=== PATIENT | female | born 1980 | race Caucasian/White ===

== ENCOUNTER → 2019-03-24 07:08 | Outpatient (CLI) | payer BC, SELFPAY ==
[2019-03-24 07:21] LABS: Mucous, Urine 0 SEEN /hpf (<or=2+)
[2019-03-24 10:41] LABS: Color, Urine Yellow (Yellow); Glucose, Dipstick Normal (Normal); Ketone-Dipstick Negative (Negative); Leukocyte Esterase-Dipstick 500 /ul (Negative); Nitrite-Dipstick Negative (Negative); Occult Blood-Urine 10 /ul (Negative); Protein-Dipstick Negative (Negative); Urine Bilirubin Dipstick Negative (Negative); Urine Clarity Sl. Cloudy (Clear); Urine Urobilinogen Normal (Normal)
[2019-03-24 10:44] LABS: Absolute Lymphocyte Count 2.77 X10^3/uL (0.83-4.51); Basophil# 0.09 X10^3/uL; Basophil% 0.8 % (0-1); Eosinophil# 0.36 X10^3/uL; Eosinophils% 3.2 % (0-5); Hematocrit 41.8 % (37-47); Hemoglobin 13.7 g/dL (12.0-15.0); Lymphocyte # 2.77 X10^3/ul (4.0); Lymphocyte % 24.8 % (19-41); Mean Corp Hgb Conc 32.8 g/dL (32-36); Mean Corpuscular Hgb 32.9 pg (27.0-32.0); Mean Corpuscular Volume 100.5 fL (81-99); Mean Platelet Vol. 9.8 fl (6.2-12.0); Monocyte# 0.86 X10^3/uL; Monocyte% 7.7 % (0-10); NRBC Flagged by Analyzer 0 % (0-5); Neutrophil # 7.03 X10^3/uL (2.7-7.7); Neutrophil % 63.1 % (47-70); Platelet Count 254 K/mm3 (150-450); RBC Distribution Width CV 13.3 % (11.6-14.6); RBC Distribution Width SD 49.6 fl (35.1-43.9); Red Blood Count 4.16 M/mm3 (4.2-5.4); White Blood Count 11.2 K/mm3 (4.4-11.0)
[2019-03-24 10:47] LABS: Bacteria 2+ /hpf (None Seen); Red Blood Cells-Urine 0-5 SEEN /hpf (0-5); Squamous Epithelial Cells - UA 0-5 SEEN /hpf (5-10); White Blood Cells 5-10 SEEN /hpf (0-5)
[2019-03-24 11:13] LABS: ALB/GLOB Ratio 0.9 RATIO (0.9-2.4); AST(SGOT) 20 U/L (15-37); Alanine Aminotransfer ALT/SGPT 24 U/L (13-56); Albumin, Serum 3.6 g/dL (3.2-5.0); Alkaline Phosphatase 67 U/L (45-117); Anion Gap 7 (5-15); BUN 12 mg/dL (7-18); BUN/Creat Ratio 13.1 RATIO (10-20); Calcium,Total 8.6 mg/dL (8.5-10.1); Chloride 108 mmol/L (98-107); Creatinine, Serum 0.91 mg/dL (0.55-1.02); EST Glomerular Filtration Rate 73 mL/min (>60); Est Glom Filt Rate - Afr Amer 88 mL/min (>60); Globulin 3.8 g/dL (2.2-4.2); Glucose 84 mg/dL (74-106); Potassium 4.2 mmol/L (3.5-5.1); Protein, Total 7.4 g/dL (6.4-8.2); Sodium Level 141 mmol/L (136-145); T4 Free Direct 0.97 ng/dL (0.76-1.46); Thyroid Stim Hormone (TSH) 1.19 uIU/mL (0.358-3.74)
== END ==
PROVIDERS: Family Provider Family Medicine; PCP Family Medicine; Referring Provider Family Medicine; Visit Provider Family Medicine
DX: N92.6 Irregular menstruation, unspecified (principal); E04.1 Nontoxic single thyroid nodule; Z72.0 Tobacco use
CPT/HCPCS: 36415; 80053; 81001; 84439; 84443; 85025

== ENCOUNTER → 2019-03-31 12:45 | Outpatient (CLI) | payer BC, SELFPAY ==
--- NOTE | 2019-03-31 12:48 | US_ITS ---
HISTORY: NODULE FELT ON EXAM COMPARISON: None TECHNIQUE: Grayscale and color Doppler sonography of the thyroid gland. FINDINGS: RIGHT LOBE: 5.5 x 2.0 x 2.6 cm LEFT LOBE: 5.4 x 2.0 x 2.3 cm ISTHMUS: 6 mm 6 x 3 x 7 mm lesion in the inferior right thyroid lobe which is isoechoic to thyroid with hypoechoic rim, regular margins, juventino-nodular vascularity and without definite calcification. TI-RADS 4. 4 x 4 x 2 mm hypoechoic nodule in the inferior right thyroid lobe with irregular margins, juventino-nodular vascularity and without definite calcification. TI-RADS 4. 3 x 2 x 3 mm left lobe cyst. Normal vascularity. US/Thyroid IMPRESSION: 1. Mild thyroid enlargement. 2. Subcentimeter right thyroid nodules. 3. Subcentimeter left thyroid lobe cyst. at 2246 Reported and signed by: Cassandra Nielson MD Electronically Signed: Cassandra Nielson MD at 22:46 EDT Tel , Service support ,
== END ==
PROVIDERS: Family Provider Family Medicine; PCP Family Medicine; Referring Provider Family Medicine; Visit Provider Family Medicine
DX: E04.1 Nontoxic single thyroid nodule (principal)
CPT/HCPCS: 76536

== ENCOUNTER → 2019-04-29 08:45 | Outpatient (CLI) | payer BC, SELFPAY ==
[2019-04-07 08:12] VITALS: BMI 25.2
[2019-04-29 10:21] LABS: Vitamin B12 680 pg/mL (211-911)
== END ==
PROVIDERS: Family Provider Family Medicine; PCP Family Medicine; Visit Provider Family Medicine
DX: D75.89 Other specified diseases of blood and blood-forming organs (principal)
CPT/HCPCS: 36415; 82607; 82746

== ENCOUNTER 2019-05-16 11:37 | Emergency (ER) | payer BC, SELFPAY ==
[2019-04-07 08:12] VITALS: BMI 25.2
[2019-05-16] VITALS (8 sets, daily range): BP systolic 102–140; BP diastolic 53–99; PULSE 72–105; RESP 14–23; TEMP 36.8; O2SAT 95–99; BMI 25.9
--- NOTE | 2019-05-16 11:46 | EKG12_ITS ---
Test Reason : MEDICAL CLEARANCE Blood Pressure : / mmHG Vent. Rate : 088 BPM Atrial Rate : 088 BPM P-R Int : 170 ms QRS Dur : 100 ms QT Int : 386 ms P-R-T Axes : 069 087 051 degrees QTc Int : 467 ms Normal sinus rhythm Incomplete right bundle branch block Borderline ECG Confirmed by MARISABEL MENDOZA, JEZ ([id number]), social media editor SILVER SHARPE ([id number]) on 05/22/2019 10:09:01 AM Referred By: BRENTON Confirmed By:JEZ PETIT MD
[2019-05-16 11:55] LABS: Absolute Lymphocyte Count 4.34 X10^3/uL (0.83-4.51); Absolute Neutrophil Count 6.2 X10^3/uL (2.0-7.7); Basophil# 0.16 X10^3/uL; Basophil% 1.3 % (0-1); Eosinophils% 2.5 % (0-5); Hematocrit 40.8 % (37-47); Hemoglobin 13.7 g/dL (12.0-15.0); Lymphocyte # 4.34 X10^3/ul (4.0); Lymphocyte % 36.2 % (19-41); Mean Corp Hgb Conc 33.6 g/dL (32-36); Mean Corpuscular Hgb 33.6 pg (27.0-32.0); Mean Platelet Vol. 8.9 fl (6.2-12.0); Monocyte# 0.86 X10^3/uL; Monocyte% 7.2 % (0-10); NRBC Flagged by Analyzer 0 % (0-5); Neutrophil # 6.23 X10^3/uL (2.7-7.7); Neutrophil % 51.9 % (47-70); POSITIVE MORPHOLOGY YES; Platelet Count 279 K/mm3 (150-450); RBC Distribution Width CV 12.7 % (11.6-14.6); RBC Distribution Width SD 46.6 fl (35.1-43.9); Red Blood Count 4.08 M/mm3 (4.2-5.4)
[2019-05-16 11:56] LABS: Differential Indicated SCAN CRITERIA MET
[2019-05-16 12:02] LABS: Internal QC Validated? YES +Cl - CLEAR BKGD; Pregnancy, Serum, hCG Quali. NEGATIVE Negative
[2019-05-16 12:11] LABS: ALB/GLOB Ratio 1.2 RATIO (0.9-2.4); AST(SGOT) 16 U/L (15-37); Alanine Aminotransfer ALT/SGPT 21 U/L (13-56); Alkaline Phosphatase 70 U/L (45-117); Anion Gap 9 (5-15); BUN 11 mg/dL (7-18); BUN/Creat Ratio 14.5 RATIO (10-20); Calcium,Total 8.1 mg/dL (8.5-10.1); Chloride 112 mmol/L (98-107); Creatinine, Serum 0.76 mg/dL (0.55-1.02); EST Glomerular Filtration Rate 90 mL/min (>60); Est Glom Filt Rate - Afr Amer 109 mL/min (>60); Estimated Creatinine Clearance 89.43 ml/min; Globulin 3.4 g/dL (2.2-4.2); Glucose 102 mg/dL (74-106); Potassium 3.8 mmol/L (3.5-5.1); Protein, Total 7.4 g/dL (6.4-8.2); Sodium Level 144 mmol/L (136-145)
[2019-05-16 12:18] LABS: Acetaminophen (Tylenol) Level < 2.0 ug/mL (10.0-30.0); Salicylate 4.3 mg/dL (2.8-20.0)
[2019-05-16 12:37] LABS: Amphetamine Urine VISTA NEGATIVE (<1000 ng/mL); Barbiturate Urine VISTA NEGATIVE (< 200 ng/mL); Benzodiazepine Urine VISTA NEGATIVE (< 200 ng/mL); Cocaine Urine VISTA NEGATIVE (< 300 ng/mL); Ecstacy Urine VISTA NEGATIVE (< 500 ng/mL); Methadone Urine VISTA NEGATIVE (< 300 ng/mL); PCP Urine VISTA NEGATIVE (< 25 ng/mL); THC Urine VISTA NEGATIVE (< 50 ng/mL); Vista UDS pH Range 5
--- NOTE | 2019-05-16 12:51 | ED.DCSUM_ITS ---
History of Present Illness Chief Complaint: Suicidal Informant: Patient, Family Onset: Today Context: Gradual Onset Timing: Continuous Current Severity: Moderate Maximum Severity: Severe Narrative: The patient presents to the emergency department with suicidal ideation. The patient has been under significant amount of stress lately. She does have a friend that had a cerebral aneurysm. She was more lethargic today. Her states that she had been drinking all night through the morning. She had been making threats of wanting to harm herself. She does take primidone for a tremor. He was unsure if she took more. She does admit to drinking vodka and red bull. Prior similar symptoms: No Recent Illness/Hospitalization: No Past Medical History - Allergies and Home Meds Allergies/Adverse Reactions: Allergies No Known Allergies Allergy (Unverified 05/16/19 11:48) Primary Care Physician: Sai Shaver MD [Primary Care Provider] - Prior records reviewed: Yes Past Medical History: - - Depression, essential tremor Smoking Status: Current every day smoker Review of Systems General: Denies: Chills, Fever, Sweats Eyes: Denies: Visual changes - bilaterally, Diplopia ENT: Denies: Rhinorrhea, Sore throat Cardiovascular: Denies: Chest pain, Palpitations Respiratory: Denies: Dyspnea, Cough, Dyspnea on exertion Gastrointestinal: Denies: Abdominal pain, Nausea, Vomiting, Diarrhea, Melena, Hematochezia Genitourinary: Denies: Dysuria, Hematuria, Frequency Musculoskeletal: Denies: Back pain, Extremity Pain Skin: Denies: Rash, Wounds Neurological: Denies: Headache, Weakness, Numbness Psych: Reports: Depression, Suicidal thoughts, Suicidal ideations Physical Exam Vital Signs/Narrative: Vital Signs Temp Pulse Resp BP Pulse Ox 05/16/19 11:38 98.3 F 105 H 16 140/99 H 99 Inital Vital Signs reviewed: Yes General: Well nourished, Well developed, No Acute Distress Head: Normocephalic, Atraumatic Eyes: Perrl, EOMI ENT: Moist mucous membranes, No rhinorrhea Neck: Supple, Nontender Cardiovascular: Regular rate, Regular rhythm, No murmurs Respiratory: No distress, CTA bilaterally, Chest nontender Abdomen: Soft, Nontender, Nondistended, Normal bowel sounds Back: Nontender, Normal Inspection Extremities: Nontender, No edema Skin: Normal color, No rash Neurological: Alert, Oriented x3, Cranial nerves II-XII grossly intact, Normal Strength, Normal Sensation Psychological: Depressed, Agitated Diagnostic/Tx/Re-eval Abnormal Lab Results 05/16/19 05/16/19 05/16/19 11:41 11:41 11:41 WBC 12.0 H RBC 4.08 L Hgb 13.7 Hct 40.8 MCV 100.0 H MCH 33.6 H MCHC 33.6 RDW Std Deviation 46.6 H RDW Coeff of [place] 12.7 Plt Count 279 MPV 8.9 Immature Gran % (Auto) 0.900 Neut % (Auto) 51.9 Lymph % (Auto) 36.2 Guthrie % (Auto) 7.2 Eos % (Auto) 2.5 Baso % (Auto) 1.3 H Absolute Neuts (auto) 6.2 Absolute Lymphs (auto) 4.34 Nucleated RBC % 0 Sodium 144 Potassium 3.8 Chloride 112 H Carbon Dioxide 23.0 Anion Gap 9 BUN 11 Creatinine 0.76 Estim Creat Clear Calc 89.43 Est GFR (MDRD) Af Amer 109 Est GFR (MDRD) Non-Af 90 BUN/Creatinine Ratio 14.5 Glucose 102 Calcium 8.1 L Total Bilirubin 0.20 AST 16 ALT 21 Alkaline Phosphatase 70 Total Protein 7.4 Albumin 4.0 Globulin 3.4 Albumin/Globulin Ratio 1.2 Serum , Qual Salicylates Urine Opiates Screen Urine Methadone Screen Acetaminophen Ur Barbiturates Screen Ur Phencyclidine Scrn Ur Amphetamines Screen U Methamphetamin-MDMA U Benzodiazepines Scrn Urine Cocaine Screen U Cannabinoids Screen Ur Drug Screen Comment Ethyl Alcohol 293.0 05/16/19 05/16/19 05/16/19 11:41 11:41 12:15 WBC RBC Hgb Hct MCV MCH MCHC RDW Std Deviation RDW Coeff of [place] Plt Count MPV Immature Gran % (Auto) Neut % (Auto) Lymph % (Auto) Guthrie % (Auto) Eos % (Auto) Baso % (Auto) Absolute Neuts (auto) Absolute Lymphs (auto) Nucleated RBC % Sodium Potassium Chloride Carbon Dioxide Anion Gap BUN Creatinine Estim Creat Clear Calc Est GFR (MDRD) Af Amer Est GFR (MDRD) Non-Af BUN/Creatinine Ratio Glucose Calcium Total Bilirubin AST ALT Alkaline Phosphatase Total Protein Albumin Globulin Albumin/Globulin Ratio Serum , Qual NEGATIVE Salicylates 4.3 Urine Opiates Screen NEGATIVE Urine Methadone Screen NEGATIVE Acetaminophen < 2.0 L Ur Barbiturates Screen NEGATIVE Ur Phencyclidine Scrn NEGATIVE Ur Amphetamines Screen NEGATIVE U Methamphetamin-MDMA NEGATIVE U Benzodiazepines Scrn NEGATIVE Urine Cocaine Screen NEGATIVE U Cannabinoids Screen NEGATIVE Ur Drug Screen Comment Ethyl Alcohol - Medical Decision Making The patient presents after suicidal gesture. She had reported suicidality. She is obviously intoxicated. Metabolic screening exam was performed. Her alcohol level was only 300, but otherwise she is medically cleared. At this point, the patient will be monitored until more sober and will be evaluated by crisis. Impression 1. Suicidal ideation 2. Alcohol intoxication ED Disposition - Plan for ED Patient: Referrals: Sai Shaver MD [Primary Care Provider] -
--- NOTE | 2019-05-16 13:00 | ED.RN ---
PT DENIES SUICIDAL OR HOMICIDAL IDEATIONS TO THIS RN. APPEARS INTOXICATED, RAMBLING NON-SENSICAL SPEECH, ANGRY AND CURSING THEN TEARFUL OR LAUGHING. SPOUSE AT BEDSIDE, VERY SUPPORTIVE.
--- NOTE | 2019-05-16 16:58 | ED.RN ---
HAD IT EXPLAINED TO HIM THAT PT HAS TO BE UNDER 100 ETOH BEFORE PT CAN BE TALKED TO. PT HAS TO SEE CRISIS OR SOCIAL WORK BEFORE A DECISION CAN BE MADE. PT GIVEN WATER BUT REFUSED FOOD. PT TOLD THAT SHE WOULD HAVE TO BE UNDER FOR ETOH WELL. PT TEARFUL AND STATED THAT HER POA WILL BE COMING
--- NOTE | 2019-05-16 17:12 | ED.RN ---
PT TEARFUL, STATES SHE DOES NOT WANT TO HAVE ANY ACCESS TO HER MEDICAL RECORDS OR VISIT HER AT THIS TIME. PT UPDATED THAT SHE WILL NEED TO STAY APPROX 9 MORE HOURS UNTIL ETOH LEVEL IS LOWER. PT VOICES UNDERSTANDING.
--- NOTE | 2019-05-16 17:17 | ED.RN ---
pt requesting no visitor at this time. informed and decided to go home. Rick has left his phone number for contact. [phone]. roxanne florez rn [phone]
[2019-05-17 00:30] VITALS: RESP 16
[2019-05-17 01:18] VITALS: RESP 16
--- NOTE | 2019-05-17 03:20 | ED.VISSUMM ---
- ER Visit Summary Date of Service: 05/17/19 Chief Complaint: [] History of Present Illness: The patient is a 38 F [] Physical Examination: [] Test Results: [] Emergency Department Course and Treatment: [] Treatment Plan: [] Disposition: [] Impression: [] This note was generated with [employer] dictation software. It may contain incorrect words, spelling, and punctuation that were not noted in review of the chart prior to signing ED Disposition - Plan for ED Patient: Disposition: Home or Assisted Living Diagnosis: Alcohol intoxication Instructions: Alcohol Intoxication, Depression Referrals: Sai Shaver MD [Primary Care Provider] - Additional Instructions: Avoid drinking alcohol. Return to emergency room if you have worsening depression or further concerns.
[2019-05-17 03:27] VITALS: BP 119/82; PULSE 79; RESP 16; O2SAT 100
--- NOTE | 2019-05-17 03:27 | ED.RN ---
PT BELONGINGS RETURNED TO PT. THIS NURSE REVIEWED D/C INSTRUCTIONS WITH PT AND . PT VERBALIZED UNDERSTANDING OF INSTRUCTIONS. IV D/C. IV CATHETER INTACT. PT TOLERATED WELL. PT DENIES FURTHER NEEDS OR QUESTIONS AT THIS TIME. PT AMBULATES FROM ROOM ON OWN WITHOUT ASSISTANCE FROM STAFF
== END 2019-05-17 03:28 | disposition home or self-care (01) ==
PROVIDERS: Emergency Medicine; Emergency Provider Emergency Medicine; Family Provider Family Medicine; PCP Family Medicine
DX: R45.851 Suicidal ideations (principal); F10.129 Alcohol abuse with intoxication, unspecified; F17.200 Nicotine dependence, unspecified, uncomplicated; F32.9 Major depressive disorder, single episode, unspecified; G25.0 Essential tremor; Y90.8 Blood alcohol level of 240 mg/100 ml or more
CPT/HCPCS: 80053; 80307; 80320; 80329; 84703; 85025; 93005; 99285; J7030; A4216; G0480

== ENCOUNTER → 2020-05-06 13:12 | Outpatient (CLI) | payer BC, SELFPAY ==
[2019-05-16 11:38] VITALS: BMI 25.9
[2020-05-06 15:08] LABS: Absolute Neutrophil Count 5.9 X10^3/uL (2.0-7.7); Basophil# 0.08 X10^3/uL; Basophil% 0.8 % (0-1); Eosinophil# 0.21 X10^3/uL; Eosinophils% 2.2 % (0-5); Hematocrit 39.3 % (37-47); Hemoglobin 12.6 g/dL (12.0-15.0); Lymphocyte % 28.7 % (19-41); Mean Corp Hgb Conc 32.1 g/dL (32-36); Mean Corpuscular Hgb 31.5 pg (27.0-32.0); Mean Corpuscular Volume 98.3 fL (81-99); Mean Platelet Vol. 9.6 fl (6.2-12.0); Monocyte# 0.75 X10^3/uL; Monocyte% 7.7 % (0-10); NRBC Flagged by Analyzer 0 % (0-5); Neutrophil # 5.86 X10^3/uL (2.7-7.7); Neutrophil % 60.2 % (47-70); Platelet Count 300 K/mm3 (150-450); RBC Distribution Width CV 12.5 % (11.6-14.6); RBC Distribution Width SD 45.1 fl (35.1-43.9); White Blood Count 9.7 K/mm3 (4.4-11.0)
[2020-05-06 15:33] LABS: Thyroid Stim Hormone (TSH) 0.11 uIU/mL (0.358-3.74)
== END ==
PROVIDERS: PCP Family Medicine; Referring Provider Family Medicine; Visit Provider Family Medicine
DX: N92.6 Irregular menstruation, unspecified (principal)
CPT/HCPCS: 36415; 84443; 85025

== ENCOUNTER → 2020-05-13 | Outpatient (CLI) | payer BC, SELFPAY ==
[2019-05-16 11:38] VITALS: BMI 25.9
[2020-05-13 15:25] LABS: T4 Free Direct 1.22 ng/dL (0.76-1.46)
[2020-05-16 16:08] LABS: Thyroid Stim Immunoglob <0.10 IU/L (0.00-0.55)
[2020-05-16 18:05] LABS: Thyroid Peroxidase AB < 9 IU/mL (0-34)
== END | disposition home or self-care (01) ==
PROVIDERS: PCP Family Medicine; Referring Provider Family Medicine; Visit Provider Family Medicine
DX: R79.89 Other specified abnormal findings of blood chemistry (principal)
CPT/HCPCS: 36415; 84439; 84445; 86376

== ENCOUNTER → 2020-05-16 08:18 | Outpatient (CLI) | payer BC, SELFPAY ==
[2019-05-16 11:38] VITALS: BMI 25.9
--- NOTE | 2020-05-16 08:21 | US_ITS ---
STUDY: THYROID ULTRASOUND REASON FOR EXAM: Female, 39 years old. F./U NODULES TECHNIQUE: Ultrasound evaluation of the thyroid was performed with real-time and static bone-scale imaging. COMPARISON: Comparison is made with prior examination dated 03/31/2019. FINDINGS: RIGHT LOBE: The right lobe of the thyroid gland is enlarged and measures 5.7 cm x 2.3 cm x 1.2 cm. There is a homogeneous echotexture. In the lower pole, there is a 6 mm x 7 mm x 4 mm hypoechoic solid nodule with internodular vascularity. A similar appearing nodule measuring 5 mm x 4 mm x 3 mm is seen in the lower pole. LEFT LOBE: The left lobe of the thyroid gland is enlarged and measures 5.8 cm x 2.3 cm x 1.5 cm. There is a homogeneous echotexture. There is a hypoechoic solid nodule measuring 3 mm x 3 mm x 1 mm in the mid pole. A similar appearing nodule measuring 9 mm x 8 mm x 8 mm is seen in the lower pole. There are nodular vascularity is seen. ISTHMUS: The isthmus measures 4 mm. The regional lymph nodes are normal. US/Thyroid IMPRESSION: Enlarged thyroid. Subcentimeters nodules in both lobes as described. Electronically Signed: Augusto Donnelly, at 10:49 EDT , Service support ,
== END ==
LOC: US 08:19
PROVIDERS: PCP Family Medicine; Referring Provider Family Medicine; Visit Provider Family Medicine
DX: E04.2 Nontoxic multinodular goiter (principal)
CPT/HCPCS: 76536

== ENCOUNTER → 2020-05-24 09:22 | Outpatient (CLI) | payer BC, SELFPAY ==
[2019-05-16 11:38] VITALS: BMI 25.9
[2020-05-24 09:46] LABS: Hematocrit 35.2 % (37-47); Hemoglobin 11.9 g/dL (12.0-15.0); Mean Corp Hgb Conc 33.8 g/dL (32-36); Mean Corpuscular Hgb 32.2 pg (27.0-32.0); Mean Corpuscular Volume 95.4 fL (81-99); Mean Platelet Vol. 9.5 fl (6.2-12.0); Platelet Count 262 K/mm3 (150-450); RBC Distribution Width CV 12.8 % (11.6-14.6); RBC Distribution Width SD 44.4 fl (35.1-43.9); Red Blood Count 3.69 M/mm3 (4.2-5.4); White Blood Count 8.8 K/mm3 (4.4-11.0)
[2020-05-24 10:04] LABS: Prolactin 9.7 ng/mL; T4 Free Direct 1.06 ng/dL (0.76-1.46); Thyroid Stim Hormone (TSH) 0.09 uIU/mL (0.358-3.74)
[2020-05-27 03:06] LABS: Chlamydia By Nucleic Acid AMP Negative (Negative)
[2020-05-27 06:28] LABS: Gonococcus By Nucleic Acid AMP Negative (Negative)
== END ==
PROVIDERS: PCP Family Medicine; Visit Provider Obstetrics & Gynecology
DX: N93.9 Abnormal uterine and vaginal bleeding, unspecified (principal)
CPT/HCPCS: 36415; 84146; 84439; 84443; 85027; 87491; 87591

== ENCOUNTER → 2020-09-30 08:44 | Outpatient (CLI) | payer BC, SELFPAY ==
[2020-08-23 09:49] VITALS: BMI 30.2
[2020-09-30 08:49] LABS: Mucous, Urine 0 SEEN /hpf (<or=2+)
[2020-09-30 09:53] LABS: Absolute Lymphocyte Count 2.11 X10^3/uL (0.83-4.51); Absolute Neutrophil Count 4.7 X10^3/uL (2.0-7.7); Basophil# 0.08 X10^3/uL; Eosinophil# 0.21 X10^3/uL; Eosinophils% 2.7 % (0-5); Hematocrit 36.4 % (37-47); Lymphocyte # 2.11 X10^3/ul (4.0); Lymphocyte % 27.3 % (19-41); Mean Corpuscular Hgb 32.3 pg (27.0-32.0); Mean Corpuscular Volume 97.8 fL (81-99); Mean Platelet Vol. 9.7 fl (6.2-12.0); Monocyte# 0.64 X10^3/uL; Monocyte% 8.3 % (0-10); NRBC Flagged by Analyzer 0 % (0-5); Neutrophil # 4.65 X10^3/uL (2.7-7.7); Neutrophil % 60.2 % (47-70); Platelet Count 252 K/mm3 (150-450); RBC Distribution Width CV 13.3 % (11.6-14.6); RBC Distribution Width SD 47.6 fl (35.1-43.9); Red Blood Count 3.72 M/mm3 (4.2-5.4); White Blood Count 7.7 K/mm3 (4.4-11.0)
[2020-09-30 09:58] LABS: Color, Urine Yellow (Yellow); Glucose, Dipstick Normal (Normal); Ketone-Dipstick Negative (Negative); Leukocyte Esterase-Dipstick 100 /ul (Negative); Nitrite-Dipstick Negative (Negative); Occult Blood-Urine 150 /ul (Negative); Protein-Dipstick Negative (Negative); Urine Bilirubin Dipstick Negative (Negative); Urine Clarity Sl. Cloudy (Clear); Urine Urobilinogen Normal (Normal)
[2020-09-30 10:09] LABS: Bacteria 1+ /hpf (None Seen); Red Blood Cells-Urine 0-5 SEEN /hpf (0-5); Squamous Epithelial Cells - UA 0-5 SEEN /hpf (5-10); White Blood Cells 0-5 SEEN /hpf (0-5)
[2020-09-30 10:18] LABS: T4 Free Direct 0.84 ng/dL (0.76-1.46); Thyroid Stim Hormone (TSH) 1.71 uIU/mL (0.358-3.74)
[2020-10-03 16:08] LABS: Thyroid Stim Immunoglob <0.10 IU/L (0.00-0.55)
[2020-10-03 19:49] LABS: Anti-Thyroglobulin AB < 1.0 IU/mL (0.0-0.9); Thyroglobulin, Serum Qt. 41.5 ng/mL (1.5-38.5); Thyroid Peroxidase AB < 9 IU/mL (0-34)
== END ==
PROVIDERS: PCP Family Medicine; Referring Provider Family Medicine; Visit Provider Family Medicine
DX: E05.90 Thyrotoxicosis, unspecified without thyrotoxic crisis or storm (principal); F17.200 Nicotine dependence, unspecified, uncomplicated
CPT/HCPCS: 36415; 81001; 84432; 84439; 84443; 84445; 85025; 86376; 86800

== ENCOUNTER → 2020-10-28 | Outpatient (CLI) | payer BC, SELFPAY ==
[2020-08-23 09:49] VITALS: BMI 30.2
== END | disposition home or self-care (01) ==
LOC: LABSPEC 13:41
PROVIDERS: PCP Family Medicine; Referring Provider Family Medicine; Visit Provider Family Medicine
DX: U07.1 COVID-19 (principal)
CPT/HCPCS: 87635; U0002

== ENCOUNTER → 2021-03-30 09:29 | Outpatient (CLI) | payer BC, SELFPAY ==
[2021-03-30 12:39] LABS: ALB/GLOB Ratio 1.1 RATIO (0.9-2.4); AST(SGOT) 21 U/L (15-37); Alanine Aminotransfer ALT/SGPT 29 U/L (13-56); Albumin, Serum 3.8 g/dL (3.2-5.0); Alkaline Phosphatase 74 U/L (45-117); Anion Gap 9 (5-15); BUN 7 mg/dL (7-18); BUN/Creat Ratio 8.1 RATIO (10-20); Calcium,Total 8.6 mg/dL (8.5-10.1); Chloride 104 mmol/L (98-107); Creatinine, Serum 0.86 mg/dL (0.55-1.02); EST Glomerular Filtration Rate 77 mL/min (>60); Est Glom Filt Rate - Afr Amer 93 mL/min (>60); Globulin 3.5 g/dL (2.2-4.2); Glucose 122 mg/dL (74-106); Potassium 3.8 mmol/L (3.5-5.1); Protein, Total 7.3 g/dL (6.4-8.2); Sodium Level 136 mmol/L (136-145); T4 Free Direct 0.93 ng/dL (0.76-1.46); Thyroid Stim Hormone (TSH) 1.68 uIU/mL (0.358-3.74)
[2021-03-31 11:52] LABS: Hemoglobin A1c 5.3 % (3.8-5.6)
== END ==
PROVIDERS: PCP Family Medicine; Referring Provider Family Medicine; Visit Provider Family Medicine
DX: E04.2 Nontoxic multinodular goiter (principal); R73.09 Other abnormal glucose
CPT/HCPCS: 36415; 80053; 83036; 84439; 84443

== ENCOUNTER → 2021-09-28 | Outpatient (CLI) | payer OTHER, SELFPAY ==
[2021-09-28 08:49] LABS: Mucous, Urine 0 SEEN /hpf (<or=2+); White Blood Cells 0 SEEN /hpf (0-5)
[2021-09-28 10:32] LABS: Color, Urine Yellow (Yellow); Glucose, Dipstick Normal (Normal); Ketone-Dipstick 50 mg/dl (Negative); Leukocyte Esterase-Dipstick Negative /ul (Negative); Nitrite-Dipstick Negative (Negative); Occult Blood-Urine 25 /ul (Negative); Protein-Dipstick Negative (Negative); Specific Gravity, Urine 1.015 (1.002-1.030); Urine Bilirubin Dipstick Negative (Negative); Urine Clarity Clear (Clear); Urine Urobilinogen Normal (Normal)
[2021-09-28 10:33] LABS: Absolute Lymphocyte Count 2.55 X10^3/uL (0.83-4.51); Absolute Neutrophil Count 6.8 X10^3/uL (2.0-7.7); Basophil# 0.11 X10^3/uL; Eosinophil# 0.21 X10^3/uL; Hematocrit 42.1 % (37-47); Hemoglobin 14.1 g/dL (12.0-15.0); Lymphocyte # 2.55 X10^3/ul (0.83-4.51); Lymphocyte % 24.2 % (19-41); Mean Corp Hgb Conc 33.5 g/dL (32-36); Mean Corpuscular Hgb 32.8 pg (27.0-32.0); Mean Corpuscular Volume 97.9 fL (81-99); Mean Platelet Vol. 9.9 fl (6.2-12.0); Monocyte# 0.79 X10^3/uL; Monocyte% 7.5 % (0-10); NRBC Flagged by Analyzer 0 % (0-5); Neutrophil # 6.82 X10^3/uL (2.7-7.7); Neutrophil % 64.7 % (47-70); Platelet Count 277 K/mm3 (150-450); RBC Distribution Width CV 12.5 % (11.6-14.6); RBC Distribution Width SD 45.3 fl (35.1-43.9); White Blood Count 10.5 K/mm3 (4.4-11.0)
[2021-09-28 10:44] LABS: Bacteria RARE /hpf (None Seen); Red Blood Cells-Urine 0-5 SEEN /hpf (0-5); Squamous Epithelial Cells - UA 0-5 SEEN /hpf (5-10)
[2021-09-28 11:01] LABS: AST(SGOT) 18 U/L (15-37); Alanine Aminotransfer ALT/SGPT 26 U/L (13-56); Albumin, Serum 3.6 g/dL (3.2-5.0); Alkaline Phosphatase 85 U/L (45-117); Anion Gap 5 (5-15); BUN 11 mg/dL (7-18); BUN/Creat Ratio 13.1 RATIO (10-20); Chloride 106 mmol/L (98-107); Creatinine, Serum 0.84 mg/dL (0.55-1.02); EST Glomerular Filtration Rate 79 mL/min (>60); Est Glom Filt Rate - Afr Amer 96 mL/min (>60); Globulin 3.6 g/dL (2.2-4.2); Glucose 91 mg/dL (74-106); Potassium 3.9 mmol/L (3.5-5.1); Protein, Total 7.2 g/dL (6.4-8.2); Sodium Level 136 mmol/L (136-145); T4 Free Direct 1.01 ng/dL (0.76-1.46); Thyroid Stim Hormone (TSH) 0.84 uIU/mL (0.358-3.74)
== END | disposition home or self-care (01) ==
LOC: MFPLAB 08:40
PROVIDERS: PCP Family Medicine; Referring Provider Family Medicine; Visit Provider Family Medicine
DX: E05.90 Thyrotoxicosis, unspecified without thyrotoxic crisis or storm (principal); F17.210 Nicotine dependence, cigarettes, uncomplicated
CPT/HCPCS: 36415; 80053; 81001; 84439; 84443; 85025

== ENCOUNTER 2021-10-18 17:42 | Outpatient (CLI) | payer OTHER, SELFPAY ==
--- NOTE | 2021-10-18 18:20 | MRI_ITS ---
EXAM: MR Head Without and With Intravenous Contrast CLINICAL INDICATION: 41 years old, Female; tremor, tongue deviation, hx TBI -- Pt has tremor which affects head, BUE, torso; alprazolam Rx for MRI pre-med TECHNIQUE: Multiplanar and multisequence MR images of the brain were obtained without and with intravenous contrast. This report was created using [employer] report generation technology. CONTRAST: IV 13mL DOTAREM COMPARISON: None. FINDINGS: Brain and extra-axial spaces: Unremarkable. No intra- or extra-axial hemorrhage. No evidence of acute infarct. No intracranial mass or mass effect. There is preservation of the bone/white matter interface. Posterior fossa structures are unremarkable. Ventricles are appropriate for age. No hydrocephalus. Basal cisterns are patent. Sella: Unremarkable. Normal sella turcica, pituitary gland, infundibular stalk, optic chiasm and hypothalamus. Auditory system: Unremarkable. The internal auditory canals are patent. Bones/joints: Unremarkable. No discrete lytic or blastic abnormalities. Sinuses: Unremarkable as visualized. Clear. Mastoid air cells: Unremarkable as visualized. Clear. Orbits: Unremarkable as visualized. Both globes, extraocular muscles, optic nerves and retrobulbar fat appear unremarkable. Vasculature: Unremarkable as visualized. Normal flow voids in the major intracranial circulation. MRI/Brain W/WO Contrast IMPRESSION: Negative MRI brain without and with intravenous contrast. Electronically Signed: Sai Becerra MD at 2:44 EDT ,
== END 2021-10-18 23:59 | disposition home or self-care (01) ==
LOC: MRI 17:43
PROVIDERS: PCP Family Medicine; Visit Provider Nurse Practitioner Family
DX: K14.8 Other diseases of tongue (principal); R25.1 Tremor, unspecified; Z87.820 Personal history of traumatic brain injury
CPT/HCPCS: 70553; A9575

== ENCOUNTER → 2022-04-06 | Outpatient (CLI) | payer OTHER, SELFPAY ==
[2022-04-06 10:06] LABS: Absolute Lymphocyte Count 2.37 X10^3/uL (0.83-4.51); Absolute Neutrophil Count 6.8 X10^3/uL (2.0-7.7); Basophil# 0.08 X10^3/uL; Basophil% 0.8 % (0-1); Eosinophils% 1.9 % (0-5); Hematocrit 42.7 % (37-47); Hemoglobin 14.6 g/dL (12.0-15.0); Lymphocyte # 2.37 X10^3/ul (0.83-4.51); Lymphocyte % 22.8 % (19-41); Mean Corp Hgb Conc 34.2 g/dL (32-36); Mean Corpuscular Hgb 33.6 pg (27.0-32.0); Mean Corpuscular Volume 98.4 fL (81-99); Mean Platelet Vol. 9.4 fl (6.2-12.0); Monocyte# 0.94 X10^3/uL; NRBC Flagged by Analyzer 0 % (0-5); Neutrophil # 6.75 X10^3/uL (2.7-7.7); Neutrophil % 64.8 % (47-70); Platelet Count 244 K/mm3 (150-450); RBC Distribution Width CV 12.2 % (11.6-14.6); RBC Distribution Width SD 44.2 fl (35.1-43.9); Red Blood Count 4.34 M/mm3 (4.2-5.4); White Blood Count 10.4 K/mm3 (4.4-11.0)
[2022-04-06 10:53] LABS: ALB/GLOB Ratio 0.9 RATIO (0.9-2.4); AST(SGOT) 12 U/L (15-37); Alanine Aminotransfer ALT/SGPT 19 U/L (13-56); Albumin, Serum 3.5 g/dL (3.2-5.0); Alkaline Phosphatase 74 U/L (45-117); Anion Gap 6 (5-15); BUN 17 mg/dL (7-18); BUN/Creat Ratio 20.5 RATIO (10-20); Calcium,Total 8.8 mg/dL (8.5-10.1); Chloride 107 mmol/L (98-107); Creatinine, Serum 0.83 mg/dL (0.55-1.02); EST Glomerular Filtration Rate 80 mL/min (>60); Est Glom Filt Rate - Afr Amer 97 mL/min (>60); Globulin 3.8 g/dL (2.2-4.2); Glucose 95 mg/dL (74-106); Potassium 4.2 mmol/L (3.5-5.1); Protein, Total 7.3 g/dL (6.4-8.2); Sodium Level 138 mmol/L (136-145); T4 Free Direct 0.94 ng/dL (0.76-1.46); Thyroid Stim Hormone (TSH) 0.87 uIU/mL (0.358-3.74)
[2022-04-10 01:07] LABS: Thyroid Stim Immunoglob <0.10 IU/L (0.00-0.55)
[2022-04-10 13:38] LABS: Anti-Thyroglobulin AB < 1.0 IU/mL (0.0-0.9); Thyroid Peroxidase AB 10 IU/mL (0-34)
== END | disposition home or self-care (01) ==
LOC: MFPLAB 09:31
PROVIDERS: PCP Family Medicine; Referring Provider Family Medicine; Visit Provider Family Medicine
DX: E05.90 Thyrotoxicosis, unspecified without thyrotoxic crisis or storm (principal)
CPT/HCPCS: 36415; 80053; 84432; 84439; 84443; 84445; 85025; 86376; 86800

== ENCOUNTER → 2022-04-14 | Outpatient (CLI) | payer OTHER, SELFPAY ==
--- NOTE | 2022-04-14 08:06 | US_ITS ---
STUDY: THYROID ULTRASOUND REASON FOR EXAM: Female, 41 years old. MULTIPLE THYROID NODULES TECHNIQUE: Ultrasound evaluation of the thyroid was performed with real-time and static bone-scale imaging. COMPARISON: 05/16/2020 FINDINGS: RIGHT LOBE: The right lobe of the thyroid gland measures 6.0 x 2.8 x 2.4 cm. There is a heterogeneous echotexture. Nodule 1: No change in the 5 x 3 x 5 mm solid hypoechoic wider than tall ill-defined marginated nodule with no echogenic foci (TR 4) in the inferior right lobe consistent with an adenoma. Nodule 2: No change in the 7 x 5 x 7 mm solid hypoechoic wider than tall ill-defined marginated nodule with no echogenic foci (TR 4) in the lateral right lobe consistent with an adenoma. LEFT LOBE: The left lobe of the thyroid gland measures 6.2 x 2.3 x 2.1 cm. There is a heterogeneous echotexture. There are no demonstrated solid, cystic or complex lesions. ISTHMUS: The isthmus measures 5 mm thick. . The regional lymph nodes are normal. US/Thyroid IMPRESSION: No change in thyroiditis and small adenomas in the right lobe. Electronically Signed: Shyam Biggs MD at 9:51 EDT ,
== END | disposition home or self-care (01) ==
LOC: US 08:03
PROVIDERS: PCP Family Medicine; Referring Provider Family Medicine; Visit Provider Family Medicine
DX: E04.2 Nontoxic multinodular goiter (principal)
CPT/HCPCS: 76536

== ENCOUNTER → 2023-02-23 | Outpatient (CLI) | payer BC, SELFPAY | END | disposition home or self-care (01) | PROVIDERS: PCP Family Medicine; Visit Provider Otolaryngology Otolaryngology/Facial Plastic Surgery | DX: J32.9 Chronic sinusitis, unspecified (principal) | CPT/HCPCS: 87070; 87205 ==

== ENCOUNTER → 2023-11-27 | Outpatient (CLI) | payer BC, SELFPAY | END | disposition home or self-care (01) | PROVIDERS: PCP Family Medicine; Referring Provider Psychiatry & Neurology Neurology; Visit Provider Psychiatry & Neurology Neurology | DX: R25.1 Tremor, unspecified (principal) | CPT/HCPCS: 36415 ==

== ENCOUNTER → 2024-05-26 | Outpatient (CLI) | payer OTHER, SELFPAY ==
--- NOTE | 2024-05-26 08:31 | RAD_ITS ---
EXAM: XR RIGHT FOOT COMPLETE, 3 OR MORE VIEWS CLINICAL INDICATION: pain -- ORIGINAL ORDER STATES BILATERAL TECHNIQUE: Frontal, lateral and oblique views of the right foot. COMPARISON: No relevant prior studies available. FINDINGS: BONES/JOINTS: Unremarkable. No acute fracture. No subluxation. Normal alignment. Preservation of the joint space. No sclerotic or destructive changes observed. SOFT TISSUES: Unremarkable. No soft tissue swelling or gas. No radiopaque foreign body. RAD/Foot min 3 Views IMPRESSION: Negative right foot x-rays. Electronically Signed: Montana Johns MD at 7:53 EDT ,
[2024-05-26 08:43] LABS: Mucous, Urine 0 SEEN /hpf (<or=2+); Red Blood Cells-Urine 0 SEEN /hpf (0-5)
--- NOTE | 2024-05-26 08:54 | RAD_ITS ---
EXAM: XR LEFT FOOT COMPLETE, 3 OR MORE VIEWS CLINICAL INDICATION: pain TECHNIQUE: Frontal, lateral and oblique views of the left foot. COMPARISON: No relevant prior studies available. FINDINGS: BONES/JOINTS: Unremarkable. No acute fracture. No subluxation. Normal alignment. Preservation of the joint space. No sclerotic or destructive changes observed. SOFT TISSUES: Unremarkable. No soft tissue swelling or gas. No radiopaque foreign body. RAD/Foot min 3 Views IMPRESSION: Negative left foot x-rays. Electronically Signed: Montana Johns MD at 7:54 EDT ,
[2024-05-26 10:20] LABS: Absolute Lymphocyte Count 2.43 X10^3/uL (0.83-4.51); Absolute Neutrophil Count 5.1 X10^3/uL (2.0-7.7); Basophil# 0.09 X10^3/uL; Eosinophil# 0.19 X10^3/uL; Eosinophils% 2.2 % (0-5); Hematocrit 40.9 % (37-47); Hemoglobin 13.5 g/dL (12.0-15.0); Lymphocyte # 2.43 X10^3/ul (0.83-4.51); Lymphocyte % 28.2 % (19-41); Mean Corpuscular Volume 96.9 fL (81-99); Mean Platelet Vol. 9.9 fl (6.2-12.0); Monocyte# 0.74 X10^3/uL; Monocyte% 8.6 % (0-10); NRBC Flagged by Analyzer 0 % (0-5); Neutrophil # 5.11 X10^3/uL (2.7-7.7); Neutrophil % 59.4 % (47-70); Platelet Count 262 K/mm3 (150-450); RBC Distribution Width CV 12.3 % (11.6-14.6); RBC Distribution Width SD 43.8 fl (35.1-43.9); Red Blood Count 4.22 M/mm3 (4.2-5.4); White Blood Count 8.6 K/mm3 (4.4-11.0)
[2024-05-26 10:29] LABS: Color, Urine Yellow (Yellow); Glucose, Dipstick Normal (Normal); Ketone-Dipstick Negative (Negative); Leukocyte Esterase-Dipstick 25 /ul (Negative); Nitrite-Dipstick Negative (Negative); Occult Blood-Urine 50 /ul (Negative); Protein-Dipstick Negative (Negative); Urine Bilirubin Dipstick Negative (Negative); Urine Clarity Clear (Clear); Urine Urobilinogen Normal (Normal)
[2024-05-26 10:46] LABS: Bacteria RARE /hpf (None Seen); Squamous Epithelial Cells - UA 5-10 SEEN /hpf (5-10); White Blood Cells 0-5 SEEN /hpf (0-5)
[2024-05-26 10:55] LABS: ALB/GLOB Ratio 0.9 RATIO (0.9-2.4); AST(SGOT) 22 U/L (15-37); Alanine Aminotransfer ALT/SGPT 27 U/L (13-56); Albumin, Serum 3.6 g/dL (3.2-5.0); Alkaline Phosphatase 77 U/L (45-117); Anion Gap 5 (5-15); BUN 14 mg/dL (7-18); BUN/Creat Ratio 17.3 RATIO (10-20); Calcium,Total 8.8 mg/dL (8.5-10.1); Chloride 105 mmol/L (98-107); Cholesterol 194 mg/dL (200); Creatinine, Serum 0.81 mg/dL (0.55-1.02); EST Glomerular Filtration Rate 82 mL/min (>60); Est Glom Filt Rate - Afr Amer 99 mL/min (>60); Globulin 3.9 g/dL (2.2-4.2); Glucose 100 mg/dL (74-106); High Density Lipoprotein 35 mg/dL; Potassium 4.3 mmol/L (3.5-5.1); Protein, Total 7.5 g/dL (6.4-8.2); Sodium Level 136 mmol/L (136-145); T4 Free Direct 0.83 ng/dL (0.76-1.46); Thyroid Stim Hormone (TSH) 0.912 uIU/mL (0.358-3.740); Triglycerides 344 mg/dL; Very Low Density Lipoprotein 69 mg/dL (5-40)
== END | disposition home or self-care (01) ==
LOC: MTLAB 08:31
PROVIDERS: PCP Family Medicine; Referring Provider Family Medicine; Visit Provider Family Medicine
DX: E04.2 Nontoxic multinodular goiter (principal); F17.210 Nicotine dependence, cigarettes, uncomplicated; E66.3 Overweight; M79.671 Pain in right foot; M79.672 Pain in left foot
CPT/HCPCS: 36415; 73630; 80053; 80061; 81001; 84439; 84443; 85025

== ENCOUNTER → 2024-10-28 | Outpatient (CLI) | payer OTHER, SELFPAY ==
[2024-10-28 10:59] LABS: Magnesium 2.1 mg/dL (1.5-2.2)
[2024-10-28 11:00] LABS: Ammonia 21.5 umol/L (11-51)
== END | disposition home or self-care (01) ==
LOC: MTLAB 09:03
PROVIDERS: PCP Family Medicine; Referring Provider Psychiatry & Neurology Neurology; Visit Provider Psychiatry & Neurology Neurology
DX: G25.0 Essential tremor (principal)
CPT/HCPCS: 36415; 82140; 83735

== ENCOUNTER → 2024-11-26 | Outpatient (CLI) | payer OTHER, SELFPAY ==
--- NOTE | 2024-11-26 10:03 | RAD_ITS ---
EXAM: Right foot three views CLINICAL HISTORY: Pain COMPARISON: None TECHNIQUE: Three views of the right foot FINDINGS: There is a nondisplaced fracture at the base of the 5th proximal phalanx which extends to the metatarsophalangeal articulation. There is no dislocation. Mineralization is normal. Soft tissue swelling is noted. RAD/Foot min 3 Views IMPRESSION: There is a nondisplaced fracture at the base of the 5th proximal phalanx which extends to the metatarsophalangeal articulation. Reading Location: [facility]
== END | disposition home or self-care (01) ==
LOC: MTRAD 10:01
PROVIDERS: PCP Family Medicine; Referring Provider Family Medicine; Visit Provider Family Medicine
DX: S92.514A Nondisplaced fracture of proximal phalanx of right lesser toe(s), initial encounter for closed fracture (principal); X58.XXXA Exposure to other specified factors, initial encounter
CPT/HCPCS: 73630

== ENCOUNTER → 2025-02-15 | Outpatient (CLI) | payer OTHER, SELFPAY ==
--- OUTSIDE RECORDS SUMMARY | 2025-02-15 06:56 | XMS RPT_ITS | CCD ---
Author Organization [facility]iniSy[facility] Care Team Providers Care Tool Clerk Name Role Phone PRACHI SALDANA Unavailable Unavailable EDA WALDROP Unavailable Unavailable MATTI KHAN Unavailable Unavailfroilan frederick [employer] [facility] Unavailable Alina BORA Soares Unavailable UnavailDr. Prachi Cardoza Primary Care Provider Dr. Prachi Shaver Referring Provider Candelaria DISBURSING AGENT, DISBURSING AGENT-C Lois Attending Provider Dr. Prachi Shaver Primary Care Provider Dr. Prachi Shaver Referring Provider Dr. Miguel Wiley Attending Provider Sivakumar MENDOZA, Dr. Prachi Frederick Primary Care Provider Dr. Prachi Shaver MD Referring Provider Dr. Miguel Wiley MD Attending Provider Inez MENDOZA, Dr. Rivera Referring Provider Unavailable Primary Care Provider UnavailCARYL Escobar Attending Unavailable CARYL KOO Referring Unavailable Prachi Shaver Referring Unavailable Miguel Wiley Attending Unavailable Prachi Shaver Primary Care Unavailable Prachi Shaver Referring Unavailable Prachi Shaver Attending Unavailable Prachi Shaver Primary Care Unavailable Prachi Shaver Primary Care Unavailable Prachi Shaver Referring Unavailable Prachi Shaver Attending Unavailable Prachi Shaver Primary Care Unavailable Miguel Wiley Referring Unavailable Miguel Wiley Attending Unavailable Prachi Shaver Referring Unavailable Prachi Shaver Attending Unavailable Prachi Shaver Primary Care Unavailable Prachi Shaver Primary Care Unavailable rPachi Shaver Referring Unavailable Prachi Shaver Attending Unavailable Allergies Allergy Classification Reported Allergen(s) Allergy Type Date of Onset Reaction(s) Facility (1 source) [facility]; [facility] Propensity to adverse reactions (disorder) [facility] Repository Medications Current Medications Medication Drug Class(es) Dates Sig (Normalized) Sig (Original) busPIRone hydrochloride 7.5 mg oral tablet (20 sources) Start: 11-27-2023 take 1 tablet by mouth three times daily Buspirone 7.5 mg tablet Active 7.5 mg PO THREE TIMES A DAY November 27, 2023 12:00am Start: 09-25-2021 End: 11-27-2023 take 1 tablet by mouth three times daily Buspirone 5 mg tablet Discontinued 5 mg PO THREE TIMES A DAY 270 March 28, 2023 11:50am November 27, 2023 8:33am Start: 01-09-2021 End: 09-25-2021 take 1 tablet by mouth twice daily Buspirone 5 mg tablet Discontinued 5 mg PO TWICE A DAY 60 June 26, 2021 11:11am June 27, 2021 9:33am Zphjrdph-Sny-Ydwo-Folic-Vit K1 (Centrum Chewables) 8 mg-400 mcg- 10 mcg tablet,chewable (7 sources) Start: 08-23-2020 take 1 tablet by mouth once daily Cuhowoid-Mkm-Cvvt-Folic-Vit K1 (Centrum Chewables) 8 mg-400 mcg- 10 mcg tablet,chewable Active 1 TABLET PO DAILY August 23, 2020 9:52am Start: 08-23-2020 take 1 tablet by jud th once daily Pogqkrld-Uiu-Brsv-Folic-Vit K1 (Centrum Chewables) 8 mg-400 mcg- 10 mcg tablet,chewable Active 1 {tbl} PO DAILY August 23, 2020 1:00am Start: 08-23-2020 take 1 tablet by jud th once daily Jktwxztr-Meb-Krzm-Folic-Vit K1 (Centrum Chewables) 8 mg-400 mcg- 10 mcg tablet,chewable Active 1 TABLET PO DAILY August 23, 2020 1:00am primidone 50 mg oral tablet (20 sources) Anti-epileptic Agent Start: 06-26-2021 End: 10-28-2024 take 1 tablet by mouth three times daily Primidone 50 mg tablet Active 150 mg PO THREE TIMES A DAY 270 October 28, 2024 8:49am Start: 06-26-2021 End: 11-27-2023 take 100 mg by mouth three times daily Primidone Active 100 MG PO THREE TIMES A DAY 540 November 27, 2023 8:33am Start: 01-09-2021 End: 06-26-2021 take 2 tablets by mouth once daily in the morning, then take 1 tablet by mouth once, then take 2 tablets by mouth once daily at bedtime, then take 2 tablets by mouth three times daily Primidone 50 mg tablet Discontinued 0 .ROUTE .COMPLEX 180 January 09, 2021 4:23pm June 26, 2021 11:12am Take 2 tabs PO QAM, 1 tab PO every mid-day, and 2 tabs PO QHS x 1 week, then increase to 2 tabs TID Start: 10-04-2020 End: 01-09-2021 take 2 tablets by mouth twice daily Primidone 50 mg tablet Discontinued 0 .ROUTE .COMPLEX 360 October 04, 2020 5:02pm January 09, 2021 4:26pm Take 2 tabs PO BID Start: 08-23-2020 End: 08-23-2020 take 1 tablet by mouth twice daily Primidone 50 mg tablet Discontinued 50 mg PO TWICE A DAY August 23, 2020 10:28am August 23, 2020 10:51am Start: 08-12-2020 End: 10-04-2020 take 1 tablet by mouth three times daily, then take 2 tablets by mouth twice daily Primidone 50 mg tablet Discontinued 0 .ROUTE .COMPLEX 120 August 23, 2020 10:49am October 04, 2020 5:04pm Take 1 tab PO TID x 1 week, then 2 tabs PO BID thereafter Start: 05-16-2019 End: 08-23-2020 take 1 tablet by mouth once daily Primidone 50 MG tablet Discontinued 50 mg PO DAILY May 16, 2019 12:00am August 23, 2020 10:29am Start: 04-07-2019 End: 04-07-2019 take 1 tablet by mouth at bedtime Primidone 50 mg tablet Discontinued 50 mg PO AT BEDTIME April 07, 2019 12:00am April 07, 2019 8:13am Completed/Discontinued Medications Medication Drug Class(es) Dates Sig (Normalized) Sig (Original) ALPRAZolam 0.5 mg oral tablet (7 sources) Benzodiazepine Start: 09-25-2021 End: 11-23-2021 Alprazolam 0.5 mg tablet Discontinued 0.5 mg PO ONCE as needed for anxiety/MRI September 25, 2021 1:00am November 23, 2021 8:50am take 30 minutes prior to MRI [place]-3 Fatty Acids (Fish Oil Concentrate) 1,000 mg capsule (7 sources) Start: 08-23-2020 End: 01-09-2021 take 1 capsule by mouth once daily [place]-3 Fatty Acids (Fish Oil Concentrate) 1,000 mg capsule Discontinued 1000 MG PO DAILY August 23, 2020 9:52am January 09, 2021 3:45pm Start: 08-23-2020 End: 01-09-2021 take 1 capsule by mouth once daily We[place]-3 Fatty Acids (Fish Oil Concentrate) 1,000 mg capsule Discontinued 1000 mg PO DAILY August 23, 2020 1:00am January 09, 2021 3:45pm Start: 08-23-2020 End: 01-09-2021 take 1 capsule by mouth once daily Weeping [place]-3 Fatty Acids (Fish Oil Concentrate) 1,000 mg capsule Discontinued 1000 MG PO DAILY August 23, 2020 1:00am January 09, 2021 3:45pm propranolol hydrochloride 10 mg oral tablet (14 sources) beta-Adrenergic Roslyn Start: 08-23-2020 End: 09-02-2020 take 1 tablet by mouth twice daily Propranolol 10 mg tablet Discontinued 10 mg PO TWICE A DAY 17 05August 23, 2020 1:00am September 01, 2020 1:00am September 02, 2020 1:03am Start: 05-27-2020 End: 08-23-2020 take 1 capsule by mouth once daily Propranolol 80 mg capsule,extended release 24 hr Discontinued 80 mg PO DAILY May 27, 2020 12:00am August 23, 2020 10:47am Problems Active Problems Problem Classification Problem Date Documented Da te Episodic/Chronic Acute cerebrovascular disease (2 sources) Nontraumatic subarachnoid hemorrhage, unspecified; Translations: [Nontraumatic subarachnoid hemorrhage, unspecified] Onset: 05-16-2016 Chronic Alcohol-related disorders (2 sources) Alcohol abuse with intoxication, unspecified; Translations: [Alcohol abuse with intoxication, unspecified] Onset: 05-16-2016 Chronic Alcohol-related disorders (7 sources) Alcohol intoxication; Translations: [Alcohol use, unspecified with intoxication, unspecified] 05-18-2019 Episodic Anxiety disorders (8 sources) Anxiety; Translations: [Anxiety disorder, unspecified] Chronic Diseases of mouth; excluding dental (8 sources) Tongue finding; Translations: [Other diseases of tongue] Episodic Intracranial injury (8 sources) History of traumatic brain injury; Translations: [Personal history of traumatic brain injury] Episodic Other hereditary and degenerative nervous system conditions (8 sources) Essential tremor; Translations: [Essential tremor] 05-14-2022 Chronic Other hereditary and degenerative nervous system conditions (3 sources) Essential tremor; Translations: [Essential and other specified forms of tremor] Onset: 11-03-2024 Chronic Other hereditary and degenerative nervous system conditions (2 sources) Myoclonus; Translations: [Myoclonus] Onset: 01-13-2025 Chronic Other hereditary and degenerative nervous system conditions (2 sources) Hereditary ataxia, unspecified; Translations: [Cerebellar ataxia (HCC)] Onset: 01-13-2025 Chronic Other hereditary and degenerative nervous system conditions (2 sources) Other specified forms of tremor; Translations: [Action tremor] Onset: 01-13-2025 Chronic Other injuries and conditions due to external causes (1 source) Unspecified injury of right foot, initial encounter; Translations: [Unspecified injury of right foot, initial encounter] Onset: 12-01-2024 Episodic Other lower respiratory disease (1 source) Shortness of breath; Translations: [Shortness of breath] Onset: 02-13-2025 Episodic Other nervous system disorders (2 sources) Tremor; Translations: [Tremor, unspecified] 11-27-2023 Episodic Thyroid disorders (1 source) Nontoxic multinodular goiter; Translations: [Nontoxic multinodular goiter] Onset: 06-16-2024 Chronic Past or Other Problems Problem Classification Problem Date Documented Da te Episodic/Chronic Unclassified (6 sources) 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 Results Test Name Value Interpretation Reference Range Facility A-Tocopherol Vit E SerPl-mCn con 01-13-2025 Alpha tocopherol [Mass/Vol] 19.6 mg/L Normal 6.0-23.0 [facility] Comment on above: Order Comment: Tabby olivas Type: BLOOD SPECIMEN Ordering Facility: [facility] Address: [address] [place] [address] Performed By: #### M ICRO, 61466-6, 11368-4 #### [facility] CLIA [id number] [address] [place] [address] [place] MARY LOU BY IFA WITH REFLEXon Nuclear Ab pattern (S) [Interp] Nuclear homogeneous Normal [facility] Comment on above: Order Comment: Tabby olivas Type: BLOOD SPECIMEN Ordering Facility: [facility] Address: [address] [place] [address] Performed By: #### 1 7791-5, 07878-0, 30399-0, 16237-9, 64096-1, 18355-1, 50375-0, 09650-1, ANAIFR, 85908-3 #### [facility] CLIA [id number] [address] [place] [address] [place] Nuclear Ab Ql (S) Positive Abnormal Negative [facility] Comment on above: Order Comment: Tabby olivas Type: BLOOD SPECIMEN Ordering Facility: [facility] Address: [address] [place] [address] Result Comment: Anti -nuclear antibody test is used as an aid in diagnosis of systemic autoimmune diseases. Where positive and clinically warranted, follow-up using disease-specific testing is recommended. Low positive titers are not uncommon with advanced age, certain chronic infections, and malignancies among others. Test methodology: Indirect fluorescence immunoassay (IFA) using HEp-2 cells. 1:160 Performed By: #### 1 7791-5, 92427-1, 60959-1, 00253-1, 20150-3, 58093-7, 04485-8, 74587-9, ANAIFR, 96999-6 #### [facility] CLIA [id number] [address] [place] [address] [place] AUTOIMMUNE ENCEPHALOPATHY EV ALUATION, SERUMon 01-13-2025 AMPA-R AB CBA, S Negative Normal Negative [facility] Comment on above: Order Comment: Tabby olivas Type: BLOOD SPECIMEN Ordering Facility: [facility] Address: [address] [place] [address] Result Comment: ADDITIONAL INFORMATION This test was developed and its performance characteristics determined by [facility] in a manner consistent with CLIA requirements. This test has not been cleared or approved by the U.S. Food and Drug Administration. Performed By: #### Mya MARVIN, 41501-7, 87138-4 #### [facility] CLIA [id number] [address] [place] [address] [place] AMPHIPHYSIN AB Negative Normal Negative [facility] Comment on above: Order Comment: Tabby olivas Type: BLOOD SPECIMEN Ordering Facility: [facility] Address: [address] [place] [address] Result Comment: ADDITIONAL INFORMATION This test was developed and its performance characteristics determined by [facility] in a manner consistent with CLIA requirements. This test has not been cleared or approved by the U.S. Food and Drug Administration. Performed By: ###Rosa Maria MARVIN, 98036-1, 18781-4 #### [facility] CLIA [id number] [address] [place] [address] [place] ANTI-GLIAL NUCLEAR AB, TYPE 1 Negative Normal Negative [facility] Comment on above: Order Comment: Tabby olivas Type: BLOOD SPECIMEN Ordering Facility: [facility] Address: [address] [place] [address] Result Comment: ADDITIONAL INFORMATION This test was developed and its performance characteristics determined by [facility] in a manner consistent with CLIA requirements. This test has not been cleared or approved by the U.S. Food and Drug Administration. Performed By: #### Mya YON, 85158-0, 62396-3 #### [facility] CLIA [id number] [address] [place] [address] ANTI-NEURONAL NUC AB, TYPE 1 Negative Normal Negative [facility] Comment on above: Order Comment: Tabby olivas Type: BLOOD SPECIMEN Ordering Facility: [facility] Address: [address] [place] [address] Result Comment: ADDITIONAL INFORMATION This test was developed and its performance characteristics determined by [facility] in a manner consistent with CLIA requirements. This test has not been cleared or approved by the U.S. Food and Drug Administration. Performed By: ###Rosa Maria MARVIN, 22071-3, 31583-7 #### [facility] CLIA [id number] [address] [place] [address] ANTI-NEURONAL NUC AB, TYPE 2 Negative Normal Negative [facility] Comment on above: Order Comment: Tabby olivas Type: BLOOD SPECIMEN Ordering Facility: [facility] Address: [address] [place] [address] Result Comment: ADDITIONAL INFORMATION This test was developed and its performance characteristics determined by [facility] in a manner consistent with CLIA requirements. This test has not been cleared or approved by the U.S. Food and Drug Administration. Performed By: ###Rosa aMria MARVIN, 75709-1, 44224-5 #### [facility] CLIA [id number] [address] [place] [address] ANTI-NEURONAL NUC AB, TYPE 3 Negative Normal Negative [facility] Comment on above: Order Comment: Tabby olivas Type: BLOOD SPECIMEN Ordering Facility: [facility] Address: [address] [place] [address] Result Comment: ADDITIONAL INFORMATION This test was developed and its performance characteristics determined by [facility] in a manner consistent with CLIA requirements. This test has not been cleared or approved by the U.S. Food and Drug Administration. Performed By: ##Rosalina MARVIN, 98489-8, 04289-1 #### [facility] CLIA [id number] [address] [place] [address] [place] CASPR2-IGG CBA S Negative Normal Negative [facility] Comment on above: Order Comment: Tabby olivas Type: BLOOD SPECIMEN Ordering Facility: [facility] Address: [address] [place] [address] Result Comment: ADDITIONAL INFORMATION This test was developed and its performance characteristics determined by [facility] in a manner consistent with CLIA requirements. This test has not been cleared or approved by the U.S. Food and Drug Administration. Performed By: #Billy MARVIN, 53984-9, 41570-7 #### [facility] CLIA [id number] [address] [place] [address] [place] CRMP-5, IGG Negative Normal Negative [facility] Comment on above: Order Comment: Tabby olivas Type: BLOOD SPECIMEN Ordering Facility: [facility] Address: [address] [place] [address] Result Comment: ADDITIONAL INFORMATION This test was developed and its performance characteristics determined by [facility] in a manner consistent with CLIA requirements. This test has not been cleared or approved by the U.S. Food and Drug Administration. Performed By: ##Rosalina MARVIN, 48453-7, 64828-7 #### [facility] CLIA [id number] [address] [place] [address] [place] DPPX AB CBA, S Negative Normal Negative [facility] Comment on above: Order Comment: Tabby olivas Type: BLOOD SPECIMEN Ordering Facility: [facility] Address: [address] [place] [address] Result Comment: ADDITIONAL INFORMATION This test was developed and its performance characteristics determined by [facility] in a manner consistent with CLIA requirements. This test has not been cleared or approved by the U.S. Food and Drug Administration. Performed By: #### Mya MARVIN, 91061-5, 79123-2 #### [facility] CLIA [id number] [address] [place] [address] ENCEPHALOPATHY INTERPRETATION SEE NOTE Normal [facility] Comment on above: Order Comment: Tabby olivas Type: BLOOD SPECIMEN Ordering Facility: [facility] Address: [address] [place] [address] Result Comment: No i nformative autoantibodies were detected in this evaluation. However, a negative result does not exclude autoimmune encephalopathy, idiopathic or paraneoplastic. Sensitivity and specificity of antibody testing are enhanced by testing both serum and CSF. Performed By: #### Mya MARVIN, 13099-2, 55791-2 #### [facility] CLIA [id number] [address] [place] [address] [place] MONIKA-B-R AB CBA, S Negative Normal Negative [facility] Comment on above: Order Comment: Tabby olivas Type: BLOOD SPECIMEN Ordering Facility: [facility] Address: [address] [place] [address] Result Comment: ADDITIONAL INFORMATION This test was developed and its performance characteristics determined by [facility] in a manner consistent with CLIA requirements. This test has not been cleared or approved by the U.S. Food and Drug Administration. Performed By: #### Mya MARVIN, 68596-5, 04066-9 #### [facility] CLIA [id number] [address] [place] [address] GAD65 ANTIBODY 0.00 nmol/L Normal <= 0.02 [facility] Comment on above: Order Comment: Tabby olivas Type: BLOOD SPECIMEN Ordering Facility: [facility] Address: [address] [place] [address] Result Comment: ADDITIONAL INFORMATION This test was developed and its performance characteristics determined by [facility] in a manner consistent with CLIA requirements. This test has not been cleared or approved by the U.S. Food and Drug Administration. Performed By: #### Mya MARVIN, 65430-8, 01555-0 #### [facility] CLIA [id number] [address] [place] [address] [place] GFAP IFA, S Negative Normal Negative [facility] Comment on above: Order Comment: Tabby olivas Type: BLOOD SPECIMEN Ordering Facility: [facility] Address: [address] [place] [address] Result Comment: ADDITIONAL INFORMATION This test was developed and its performance characteristics determined by [facility] in a manner consistent with CLIA requirements. This test has not been cleared or approved by the U.S. Food and Drug Administration. Performed By: #### M YON, 13970-5, 59666-1 #### [facility] CLIA [id number] [address] [place] [address] IFA NOTES - ENCSER None. Normal [facility] Comment on above: Order Comment: Tabby olivas Type: BLOOD SPECIMEN Ordering Facility: [facility] Address: [address] [place] [address] Performed By: #### Mya AYDENO, 66086-8, 72701-0 #### [facility] CLIA [id number] [address] [place] [address] [place] IGLON5 CBA, S Negative Normal Negative [facility] Comment on above: Order Comment: Speckarin olivas Type: BLOOD SPECIMEN Ordering Facility: [facility] Address: [address] [place] [address] Result Comment: ADDITIONAL INFORMATION This test was developed and its performance characteristics determined by [facility] in a manner consistent with CLIA requirements. This test has not been cleared or approved by the U.S. Food and Drug Administration. Performed By: #### Mya MARVIN, 94715-7, 75956-3 #### [facility] CLIA [id number] [address] [place] [address] [place] LGI1-IGG CBA SERUM Negative Normal Negative [facility] Comment on above: Order Comment: Tabby olivas Type: BLOOD SPECIMEN Ordering Facility: [facility] Address: [address] [place] [address] Result Comment: ADDITIONAL INFORMATION This test was developed and its performance characteristics determined by [facility] in a manner consistent with CLIA requirements. This test has not been cleared or approved by the U.S. Food and Drug Administration. Performed By: #### Mya HENSLEYO, 78871-7, 29063-2 #### [facility] CLIA [id number] [address] [place] [address] [place] MGLUR1 AB IFA, S Negative Normal Negative [facility] Comment on above: Order Comment: Tabby olivas Type: BLOOD SPECIMEN Ordering Facility: [facility] Address: [address] [place] [address] Result Comment: ADDITIONAL INFORMATION This test was developed and its performance characteristics determined by [facility] in a manner consistent with CLIA requirements. This test has not been cleared or approved by the U.S. Food and Drug Administration. Performed By: #### Mya MARVIN, 57779-7, 37707-7 #### [facility] CLIA [id number] [address] [place] [address] NEUROCHONDRIN IFA , S Negative Normal Negative [facility] Comment on above: Order Comment: Tabby olivas Type: BLOOD SPECIMEN Ordering Facility: [facility] Address: [address] [place] [address] Result Comment: ADDITIONAL INFORMATION This test was developed and its performance characteristics determined by [facility] in a manner consistent with CLIA requirements. This test has not been cleared or approved by the U.S. Food and Drug Administration. Performed By: ###Rosa Maria MARVIN, 89970-7, 44115-2 #### [facility] CLIA [id number] [address] [place] [address] [place] NIF IFA, S Negative Normal Negative [facility] Comment on above: Order Comment: Tabby olivas Type: BLOOD SPECIMEN Ordering Facility: [facility] Address: [address] [place] [address] Result Comment: ADDITIONAL INFORMATION This test was developed and its performance characteristics determined by [facility] in a manner consistent with CLIA requirements. This test has not been cleared or approved by the U.S. Food and Drug Administration. Performed By: #### Mya MARVIN, 41142-2, 02434-9 #### [facility] CLIA [id number] [address] [place] [address] [place] NMDA-R AB CBA, S Negative Normal Negative [facility] Comment on above: Order Comment: Tabby olivas Type: BLOOD SPECIMEN Ordering Facility: [facility] Address: [address] [place] [address] Result Comment: ADDITIONAL INFORMATION This test was developed and its performance characteristics determined by [facility] in a manner consistent with CLIA requirements. This test has not been cleared or approved by the U.S. Food and Drug Administration. Performed By: ###Rosa Maria MARVIN, 05112-1, 07236-2 #### [facility] CLIA [id number] [address] [place] [address] PDE10A AB IFA, S Negative Normal Negative [facility] Comment on above: Order Comment: Tabby olivas Type: BLOOD SPECIMEN Ordering Facility: [facility] Address: [address] [place] [address] Result Comment: ADDITIONAL INFORMATION This test was developed and its performance characteristics determined by [facility] in a manner consistent with CLIA requirements. This test has not been cleared or approved by the U.S. Food and Drug Administration. Performed By: #### Mya MARVIN, 25814-2, 74431-8 #### [facility] CLIA [id number] [address] [place] [address] PURKINJE CELL CYTO AB, TYPE 1 Negative Normal Negative [facility] Comment on above: Order Comment: Tabby olivas Type: BLOOD SPECIMEN Ordering Facility: [facility] Address: [address] [place] [address] Result Comment: ADDITIONAL INFORMATION This test was developed and its performance characteristics determined by [facility] in a manner consistent with CLIA requirements. This test has not been cleared or approved by the U.S. Food and Drug Administration. Performed By: #### Mya MARVIN, 75938-9, 26225-6 #### [facility] CLIA [id number] [address] [place] [address] PURKINJE CELL CYTO AB, TYPE 2 Negative Normal Negative [facility] Comment on above: Order Comment: Tabby olivas Type: BLOOD SPECIMEN Ordering Facility: [facility] Address: [address] [place] [address] Result Comment: ADDITIONAL INFORMATION This test was developed and its performance characteristics determined by [facility] in a manner consistent with CLIA requirements. This test has not been cleared or approved by the U.S. Food and Drug Administration. Performed By: #### Mya MARVIN, 33359-5, 39100-5 #### [facility] CLIA [id number] [address] [place] [address] PURKINJE CELL CYTO AB, TYPE TR Negative Normal Negative [facility] Comment on above: Order Comment: Tabby olivas Type: BLOOD SPECIMEN Ordering Facility: [facility] Address: [address] [place] [address] Result Comment: ADDITIONAL INFORMATION This test was developed and its performance characteristics determined by [facility] in a manner consistent with CLIA requirements. This test has not been cleared or approved by the U.S. Food and Drug Administration. Performed By: ###Rosa Maria MARVIN, 45315-9, 12614-6 #### [facility] CLIA [id number] [address] [place] [address] SEPTIN-7 IFA, S Negative Normal Negative [facility] Comment on above: Order Comment: Tabby olivas Type: BLOOD SPECIMEN Ordering Facility: [facility] Address: [address] [place] [address] Result Comment: ADDITIONAL INFORMATION This test was developed and its performance characteristics determined by [facility] in a manner consistent with CLIA requirements. This test has not been cleared or approved by the U.S. Food and Drug Administration. Performed By: #### M AYDENO, 12218-3, 16580-9 #### [facility] CLIA [id number] [address] [place] [address] [place] TRIM46 AB IFA, S Negative Normal Negative [facility] Comment on above: Order Comment: Tabby olivas Type: BLOOD SPECIMEN Ordering Facility: [facility] Address: [address] [place] [address] Result Comment: ADDITIONAL INFORMATION This test was developed and its performance characteristics determined by [facility] in a manner consistent with CLIA requirements. This test has not been cleared or approved by the U.S. Food and Drug Administration. Test Performed by: [address] [address] Mechanical Piping Designer: Elizabeth Nazario Ph.D.; CLIA# [id number] Performed By: #### Mya HENSLEYO, 08418-1, 21797-8 #### [facility] CLIA [id number] [address] [place] [address] [place] Alpha tocopherol [Mass/Vol]o n 01-13-2025 Beta+gamma tocopherol [Mass/Vol] 1.7 mg/L Normal 0.3-3.2 [facility] Comment on above: Order Comment: Tabby olivas Type: BLOOD SPECIMEN Ordering Facility: [facility] Address: [address] [place] [address] Result Comment: This test was developed, and its performance characteristics determined by the [facility] Department of Pathology and Laboratory Medicine. It has not been cleared or approved by the FDA. The [facility] Department of Pathology and Laboratory Medicine is regulated under CLIA as qualified to perform high-complexity testing. This test is used for clinical purposes. It should not be regarded as investigational or for research. Performed By: #### M ICRO, 63277-1, 68352-4 #### [facility] CLIA [id number] [address] [place] [address] [place] CBC panel Auto (Bld)on 01-13 Erythrocyte distribution width (RBC) [Ratio] 11.9 % Normal 11.5-15.0 [facility] Comment on above: Order Comment: Speci men Type: BLOOD SPECIMEN Ordering Facility: [facility] Address: [address] [place] [address] Performed By: #### 2 064-4 #### [facility] CLIA [id number] [address] [place] [address] [place] Hematocrit (Bld) [Volume fraction] 38.1 % Normal 36.0-46.0 [facility] Comment on above: Order Comment: Speci men Type: BLOOD SPECIMEN Ordering Facility: [facility] Address: [address] [place] [address] Performed By: #### 2 064-4 #### [facility] CLIA [id number] [address] [place] [address] [place] Hemoglobin (Bld) [Mass/Vol] 13.1 g/dL Normal 11.5-15.5 [facility] Comment on above: Order Comment: Speci men Type: BLOOD SPECIMEN Ordering Facility: [facility] Address: [address] [place] [address] Performed By: #### 2 064-4 #### [facility] CLIA [id number] [address] [place] [address] [place] MCH (RBC) [Entitic mass] 32.9 pg Normal 26.0-34.0 [facility] Comment on above: Order Comment: Speci men Type: BLOOD SPECIMEN Ordering Facility: [facility] Address: [address] [place] [address] Performed By: #### 2 064-4 #### [facility] CLIA [id number] [address] [place] [address] [place] MCHC (RBC) [Mass/Vol] 34.4 g/dL Normal 30.5-36.0 [facility] Comment on above: Order Comment: Speci men Type: BLOOD SPECIMEN Ordering Facility: [facility] Address: [address] [place] [address] Performed By: #### 2 064-4 #### [facility] CLIA [id number] [address] [place] [address] [place] MCV (RBC) [Entitic vol] 95.7 fL Normal 80.0-100.0 [facility] Comment on above: Order Comment: Speci men Type: BLOOD SPECIMEN Ordering Facility: [facility] Address: [address] [place] [address] Performed By: #### 2 064-4 #### [facility] CLIA [id number] [address] [place] [address] [place] Nucleated RBC (Bld) [#/Vol] 10*3/uL Normal <0.01 [facility] Comment on above: Order Comment: Speci men Type: BLOOD SPECIMEN Ordering Facility: [facility] Address: [address] [place] [address] Performed By: #### 2 064-4 #### [facility] CLIA [id number] [address] [place] [address] [place] Platelet mean volume (Bld) [Entitic vol] 9.0 fL Normal 9.0-12.7 [facility] Comment on above: Order Comment: Speci men Type: BLOOD SPECIMEN Ordering Facility: [facility] Address: [address] [place] [address] Performed By: #### 2 064-4 #### [facility] CLIA [id number] [address] [place] [address] [place] Platelets (Bld) [#/Vol] 264 10*3/uL Normal 150-400 [facility] Comment on above: Order Comment: Speci men Type: BLOOD SPECIMEN Ordering Facility: [facility] Address: [address] [place] [address] Performed By: #### 2 064-4 #### [facility] CLIA [id number] [address] [place] [address] [place] RBC (Bld) [#/Vol] 3.98 10*6/uL Normal 3.90-5.20 [facility] Comment on above: Order Comment: Speci men Type: BLOOD SPECIMEN Ordering Facility: [facility] Address: [address] [place] [address] Performed By: #### 2 064-4 #### [facility] CLIA [id number] [address] [place] [address] [place] WBC (Bld) [#/Vol] 11.53 10*3/uL High 3.70-11.00 [facility] Comment on above: Order Comment: Speci men Type: BLOOD SPECIMEN Ordering Facility: [facility] Address: [address] [place] [address] Performed By: #### 2 064-4 #### [facility] CLIA [id number] [address] [place] [address] [place] COPPER BLOODon 01-13-2025 Copper [Mass/Vol] 102 ug/dL Normal 80-155 [facility] Comment on above: Order Comment: Speci men Type: BLOOD SPECIMEN Ordering Facility: [facility] Address: [address] [place] [address] Result Comment: This test was developed, and its performance characteristics determined by the [facility] Department of Pathology and Laboratory Medicine. It has not been cleared or approved by the FDA. The [facility] Department of Pathology and Laboratory Medicine is regulated under CLIA as qualified to perform high-complexity testing. This test is used for clinical purposes. It should not be regarded as investigational or for research. Performed By: #### 2 064-4 #### [facility] CLIA [id number] [address] [place] [address] Centromere Ab IF Ql (S)on Centromere Ab Qn (S) <0.2 Normal <1.0 [facility] Comment on above: Order Comment: Speci men Type: BLOOD SPECIMEN Ordering Facility: [facility] Address: [address] [place] [address] Result Comment: Anti -centromere antibody is used as in aid in diagnosis of systemic sclerosis. Clinical correlation is required. Test Methodology: Multiplex flow immunoassay. Performed By: #### 2 4323-8, 6-3 #### [facility] CLIA [id number] [address] [place] [address] [place] Performed By: #### 2 064-4 #### [facility] CLIA [id number] [address] [place] [address] CENTROMERE AB QUAL Negative Normal Negative [facility] Comment on above: Order Comment: Tabby olivas Type: BLOOD SPECIMEN Ordering Facility: [facility] Address: [address] [place] [address] Performed By: #### 2 4323-8, 6-3 #### [facility] CLIA [id number] [address] [place] [address] [place] Performed By: #### 2 064-4 #### [facility] CLIA [id number] [address] [place] [address] [place] Ceruloplasmin SerPl-mCncon 0 01-13-2025 Ceruloplasmin [Mass/Vol] 26 mg/dL Normal 16-45 [facility] Comment on above: Order Comment: Speci men Type: BLOOD SPECIMEN Ordering Facility: [facility] Address: [address] [place] [address] Performed By: #### 2 064-4 #### [facility] CLIA [id number] [address] [place] [address] [place] Chromatin Ab Qnon 01-13-2025 CHROMATIN AB QUAL Negative Normal Negative [facility] Comment on above: Order Comment: Speci men Type: BLOOD SPECIMEN Ordering Facility: [facility] Address: [address] [place] [address] Performed By: #### 1 7791-5, 72885-8, 02448-5, 04907-2, 95222-1, 01695-4, 67202-0, 24917-6, ANAIFR, 95299-5 #### [facility] CLIA [id number] [address] [place] [address] Performed By: #### 2 4323-8, 3016-3 #### [facility] CLIA [id number] [address] [place] [address] [place] Chromatin Ab SerPl-aCncon Chromatin Ab Qn <0.2 Normal <1.0 [facility] Comment on above: Order Comment: Speci men Type: BLOOD SPECIMEN Ordering Facility: [facility] Address: [address] [place] [address] Result Comment: Test Methodology: Multiplex flow immunoassay. Performed By: #### 1 7791-5, 88743-4, 91116-2, 19070-9, 91784-1, 58232-1, 16409-9, 56622-1, ANAIFR, 29814-7 #### [facility] CLIA [id number] [address] [place] [address] Performed By: #### 2 4323-8, 3016-3 #### [facility] CLIA [id number] [address] [place], [place] [address] [place] Comprehensive metabolic 2000 panelon 01-13-2025 Albumin [Mass/Vol] 4.3 g/dL Normal 3.9-4.9 [facility] Comment on above: Order Comment: Speci men Type: BLOOD SPECIMEN Ordering Facility: [facility] Address: [address] [id number] Performed By: #### 2 4323-8, 3016-3 #### [facility] CLIA [id number] [place] [address] [place] ALP [Catalytic activity/Vol] 83 U/L Normal 34-123 [facility] Comment on above: Order Comment: Speci men Type: BLOOD SPECIMEN Ordering Facility: [facility] Address: [address] [place] [address] Performed By: #### 2 4323-8, 3016-3 #### [facility] CLIA [id number] [address] [place] [address] [place] ALT [Catalytic activity/Vol] 21 U/L Normal 7-38 [facility] Comment on above: Order Comment: Speci men Type: BLOOD SPECIMEN Ordering Facility: [facility] Address: [address] [place] [address] Performed By: #### 2 4323-8, 6-3 #### [facility] CLIA [id number] [address] [place] [address] [place] Anion gap [Moles/Vol] 10 mmol/L Normal 8-15 [facility] Comment on above: Order Comment: Speci men Type: BLOOD SPECIMEN Ordering Facility: [facility] Address: [address] [place] [address] Performed By: #### 2 4323-8, 3016-3 #### [facility] CLIA [id number] [address] [place] [address] [place] AST [Catalytic activity/Vol] 21 U/L Normal 13-35 [facility] Comment on above: Order Comment: Speci men Type: BLOOD SPECIMEN Ordering Facility: [facility] Address: [address] [place] [address] Performed By: #### 2 4323-8, 3016-3 #### [facility] CLIA [id number] [place] [address] [place] Bilirubin [Mass/Vol] 0.2 mg/dL Normal 0.2-1.3 [facility] Comment on above: Order Comment: Speci men Type: BLOOD SPECIMEN Ordering Facility: [facility] Address: [address] [place] [address] Performed By: #### 2 4323-8, 3016-3 #### [facility] CLIA [id number] [address] [place] [id number] [place] Calcium [Mass/Vol] 9.3 mg/dL Normal 8.5-10.2 [facility] Comment on above: Order Comment: Speci men Type: BLOOD SPECIMEN Ordering Facility: [facility] Address: [address] [place] [address] Performed By: #### 2 4323-8, 6-3 #### [facility] CLIA [id number] [address] [place] [address] [place] Chloride [Moles/Vol] 102 mmol/L Normal 98-107 [facility] Comment on above: Order Comment: Speci men Type: BLOOD SPECIMEN Ordering Facility: [facility] Address: [address] [place] [address] Performed By: #### 2 4323-8, 6-3 #### [facility] CLIA [id number] [address] [place] [address] [place] CO2 [Moles/Vol] 25 mmol/L Normal 22-30 [facility] Comment on above: Order Comment: Speci men Type: BLOOD SPECIMEN Ordering Facility: [facility] Address: [address] [place] [address] Performed By: #### 2 4323-8, 6-3 #### [facility] CLIA [id number] [address] [place], [place] [address] [place] Creatinine [Mass/Vol] 0.81 mg/dL Normal 0.58-0.96 [facility] Comment on above: Order Comment: Speci men Type: BLOOD SPECIMEN Ordering Facility: [facility] Address: [address] [place] [address] Performed By: #### 2 4323-8, 6-3 #### [facility] CLIA [id number] [address] [place] [address] [place] Creatinine and Glomerular filtration rate.predicted panel (S/P/Bld) 91 mL/min/1.73m??? Normal >=60 [facility] Comment on above: Order Comment: Tabby olivas Type: BLOOD SPECIMEN Ordering Facility: [facility] Address: [address] [place] [address] Result Comment: Sonja mated Glomerular Filtration Rate (eGFR) is calculated using the 2020 CKD-EPI creatinine equation. This equation utilizes serum creatinine, sex, and age as parameters. The creatinine assay has traceable calibration to isotope dilution-mass spectrometry. Refer to KDIGO guidelines for clinical interpretation. In patients with unstable renal function, e.g. those with acute kidney injury, the eGFR may not accurately reflect actual GFR. Performed By: #### 2 4323-8, 3016-3 #### [facility] CLIA [id number] [address] [place] [address] [place] Glucose [Mass/Vol] 89 mg/dL Normal 74-99 [facility] Comment on above: Order Comment: Tabby olivas Type: BLOOD SPECIMEN Ordering Facility: [facility] Address: [address] [place] [address] Result Comment: The [place] Diabetes Association (ADA) provides guidance for cutoff values for fasting glucose and random glucose. The ADA defines fasting as no caloric intake for at least 8 hours. Fasting plasma glucose results between 100 to 125 mg/dL indicate increased risk for diabetes (prediabetes). Fasting plasma glucose results greater than or equal to 126 mg/dL meet the criteria for diagnosis of diabetes. In the absence of unequivocal hyperglycemia, results should be confirmed by repeat testing. In a patient with classic symptoms of hyperglycemia or hyperglycemic crisis, random plasma glucose results greater than or equal to 200 mg/dL meet the criteria for diagnosis of diabetes. Reference: Standards of Medical Care in Diabetes 2016, [place] Diabetes Association. Diabetes Care. 2016.39(Suppl 1). Performed By: #### 2 4323-8, 3016-3 #### [facility] CLIA [id number] [address] [place] [id number] [place] Potassium [Moles/Vol] 3.9 mmol/L Normal 3.7-5.1 [facility] Comment on above: Order Comment: Speci men Type: BLOOD SPECIMEN Ordering Facility: [facility] Address: [address] [place] [address] Performed By: #### 2 4323-8, 3016-3 #### [facility] CLIA [id number] [address] [place] [address] [place] Protein [Mass/Vol] 7.5 g/dL Normal 6.3-8.0 [facility] Comment on above: Order Comment: Speci men Type: BLOOD SPECIMEN Ordering Facility: [facility] Address: [address] [place] [address] Performed By: #### 2 4323-8, 6-3 #### [facility] CLIA [id number] [address] [place] [address] [place] Sodium [Moles/Vol] 137 mmol/L Normal 136-144 [facility] Comment on above: Order Comment: Speci men Type: BLOOD SPECIMEN Ordering Facility: [facility] Address: [address] [place] [address] Performed By: #### 2 4323-8, 6-3 #### [facility] CLIA [id number] [address] [place] [address] [place] Urea nitrogen [Mass/Vol] 15 mg/dL Normal 7-21 [facility] Comment on above: Order Comment: Speci men Type: BLOOD SPECIMEN Ordering Facility: [facility] Address: [address] [place] [address] Performed By: #### 2 4323-8, 6-3 #### [facility] CLIA [id number] [address] [place] [address] [place] DNA double strand Ab IA Qn ( S)on 01-13-2025 DNA ANTIBODY 94 IU/mL Normal <=200 [facility] Comment on above: Order Comment: Speci men Type: BLOOD SPECIMEN Ordering Facility: [facility] Address: [address] [place] [address] Result Comment: Nega tive: <200 IU/mL Equivocal: 201-300 IU/mL Moderate Positive: 301-800 IU/mL Strong Positive: >801 IU/mL Performed By: #### 2 4323-8, 3016-3 #### [facility] CLIA [id number] [address] [place] [address] DNA ANTIBODY QUALITATIVE INTERPRETATION Negative Normal Negative [facility] Comment on above: Order Comment: Speci men Type: BLOOD SPECIMEN Ordering Facility: [facility] Address: [address] [place] [address] Performed By: #### 2 4323-8, 3015-3 #### [facility] CLIA [id number] [address] [place] [address] [place] DELFIN Jo1 Ab Ser-aCncon 2024 Leyda-1 extractable nuclear Ab Qn (S) <0.2 Normal <1.0 [facility] Comment on above: Order Comment: Speci men Type: BLOOD SPECIMEN Ordering Facility: [facility] Address: [address] [place] [address] Performed By: #### 2 4323-8, 3015-3 #### [facility] CLIA [id number] [address] [place] [address] Performed By: #### 2 064-4 #### [facility] CLIA [id number] [address] [place] [address] [place] DELFIN DESIGN ASSEMBLER Ab Ser-aCncon 2024 Ribonucleoprotein extractable nuclear Ab Qn (S) <0.2 Normal <1.0 [facility] Comment on above: Order Comment: Speci men Type: BLOOD SPECIMEN Ordering Facility: [facility] Address: [address] [place] [address] Performed By: #### 1 7791-5, 86866-1, 65593-1, 83654-1, 42855-4, 69328-2, 85585-3, 26506-7, ANAIFR, 79792-1 #### [facility] CLIA [id number] [address] [place] [address] Performed By: #### 2 4323-8, 3015-3 #### [facility] CLIA [id number] [address] [place] [address] Performed By: #### 2 064-4 #### [facility] CLIA [id number] [address] [place] [address] [place] DELFIN SM IgG Ser-aCncon 2024 Ibarra extractable nuclear IgG Qn (S) <0.2 Normal <1.0 [facility] Comment on above: Order Comment: Speci men Type: BLOOD SPECIMEN Ordering Facility: [facility] Address: [address] [place] [address] Performed By: #### 2 4323-8, 3016-3 #### [facility] CLIA [id number] [address] [place] [address] Performed By: #### 2 064-4 #### [facility] CLIA [id number] [address] [place] [address] [place] DELFIN SS-A Ab Ser-aCncon 01-13 Sjogrens syndrome-A extractable nuclear Ab Qn (S) <0.2 Normal <1.0 [facility] Comment on above: Order Comment: Speci men Type: BLOOD SPECIMEN Ordering Facility: [facility] Address: [address] [place] [address] Result Comment: Test Methodology: Multiplex flow immunoassay. Performed By: #### 2 4323-8, 6-3 #### [facility] CLIA [id number] [address] [place] [address] [place] Performed By: #### 2 064-4 #### [facility] CLIA [id number] [address] [place] [address] [place] DELFIN SS-B Ab Ser-aCncon 01-13 Sjogrens syndrome-B extractable nuclear Ab Qn (S) <0.2 Normal <1.0 [facility] Comment on above: Order Comment: Speci men Type: BLOOD SPECIMEN Ordering Facility: [facility] Address: [address] [place] [address] Result Comment: Anti -SSB (anti-La) antibody is used as an aid in diagnosis of a variety of systemic autoimmune diseases, especially for Sjogren's syndrome and systemic lupus erythematosus. Clinical correlation is required. Test Methodology: Multiplex flow immunoassay. Performed By: #### 1 7791-5, 41227-3, 45820-5, 14510-2, 34399-4, 51995-8, 01541-3, 22266-2, ANAIFR, 64824-5 #### [facility] CLIA [id number] [address] [place] [address] [place] Performed By: #### 2 4323-8, 3016-3 #### [facility] CLIA [id number] [address] [place] [address] [place] HIV 1+2 Ab IA Qlon 5 HIV 1 and 2 Ab IA.rapid Nom (S/P/Bld) Normal [facility] Comment on above: Order Comment: Speci men Type: BLOOD SPECIMEN Ordering Facility: [facility] Address: [address] [place] [address] Result Comment: Test not indicated. Performed By: #### Mya MARVIN, 04062-7, 85366-6 #### [facility] CLIA [id number] [address] [place] [address] [place] HIV 1+2 Ab+HIV1 p24 Ag IA Ql Non-Reactive Normal Nonreactive [facility] Comment on above: Order Comment: Speci men Type: BLOOD SPECIMEN Ordering Facility: [facility] Address: [address] [place] [address] Performed By: #### M YON, 38120-5, 50166-6 #### [facility] CLIA [id number] [address] [place] [address] [place] HIV immunoassay testing algorithm interpretation (S/P/Bld) [Interp] Normal [facility] Comment on above: Order Comment: Speci men Type: BLOOD SPECIMEN Ordering Facility: [facility] Address: [address] [place] [address] Result Comment: No e vidence of HIV-1 or HIV-2 infection. Should recent infection be suspected, repeat testing may be considered 2-3 weeks after this draw. [place] Rev. Code 3701.243(E): This information has been disclosed to you from confidential records protected from disclosure by state law. You shall make no further disclosure of this information without the specific, written, and informed release of the individual to whom it pertains or as otherwise permitted by state law. A general authorization for the release of medical or other information is not sufficient for the purpose of the release of HIV test results or diagnoses. Performed By: #### M ICRO, 38671-4, 48315-8 #### [facility] CLIA [id number] [address] [place] [address] [place] Leyda-1 extractable nuclear Ab Qn (S)on 01-13-2025 LEYDA 1 ANTIBODY QUAL Negative Normal Negative [facility] Comment on above: Order Comment: Speci men Type: BLOOD SPECIMEN Ordering Facility: [facility] Address: [address] [place] [address] Result Comment: Anti -LEYDA-1 antibody is used as an aid in diagnosis of polymyositis and dermatomyositis especially with pulmonary involvement. A negative result cannot rule out polymyositis or dermatomyositis. Clinical correlation is required. Test Methodology: Multiplex flow immunoassay. Performed By: #### 2 4323-8, 3016-3 #### [facility] CLIA [id number] [address] [place] [address] [place] Performed By: #### 2 064-4 #### [facility] CLIA [id number] [address] [place] [address] [place] PTH-Intact SerPl-mCncon 12-27 Parathyrin.intact [Mass/Vol] 42 pg/mL Normal 15-65 [facility] Comment on above: Order Comment: Speci men Type: BLOOD SPECIMEN Ordering Facility: [facility] Address: [address] [place] [address] Performed By: #### 2 064-4 #### [facility] CLIA [id number] [address] [place] [address] [place] Reagin and Treponema pallidu m IgG and IgM [Interp]on 01-13-2025 T. pallidum IgG+IgM IA Ql (S) Non-Reactive Normal Nonreactive [facility] Comment on above: Order Comment: Speci men Type: BLOOD SPECIMEN Ordering Facility: [facility] Address: [address] [place] [address] Performed By: #### M YON, 20106-4, 51782-1 #### [facility] CLIA [id number] [address] [place] [address] [place] Reagin+T pallidum IgG+IgM Se rPl-Impon 01-13-2025 Reagin and Treponema pallidum IgG and IgM [Interp] Cannot exclude recent Treponemal infection if specimen collected within 7-10 days after appearance of suspect lesions or 2-3 weeks after an exposure. Clinical correlation is required. Normal [facility] Comment on above: Order Comment: Speci men Type: BLOOD SPECIMEN Ordering Facility: [facility] Address: [address] [place] [address] Performed By: #### M YON, 08522-7, 65545-9 #### [facility] CLIA [id number] [address] [place] [address] [place] Ribonucleoprotein extractabl e nuclear Ab Qn (S)on 01-13-2025 ANTI-DESIGN ASSEMBLER QUAL Negative Normal Negative [facility] Comment on above: Order Comment: Speci men Type: BLOOD SPECIMEN Ordering Facility: [facility] Address: [address] [place] [address] Performed By: #### 2 4323-8, 3016-3 #### [facility] CLIA [id number] [place] [address] [place] Performed By: #### 2 064-4 #### [facility] CLIA [id number] [address] [place] RIBOSOMAL DESIGN ASSEMBLER QUAL Negative Normal Negative [facility] Comment on above: Order Comment: Tabby olivas Type: BLOOD SPECIMEN Ordering Facility: [facility] Address: [address] [place] [address] Result Comment: Anti -Ribosomal RNA (Ribosomal P) antibody is used as an aid in diagnosis of systemic autoimmune diseases especially systemic lupus erythematosus and mixed connective tissue disease. Cross-reactivity with Anti-ibarra antibody is not uncommon. Clinical correlation is required. Test Methodology: Multiplex flow immunoassay. Performed By: #### 1 7791-5, 47146-4, 23007-8, 49216-7, 30141-3, 26108-8, 54983-3, 80825-8, ANAIFR, 88077-2 #### [facility] CLIA [id number] [address] [place] [address] [place] Performed By: #### 2 4323-8, 3016-3 #### [facility] CLIA [id number] [address] [place] [address] [place] SCL-70 extractable nuclear I gG IA Qn (S)on 01-13-2025 SCLERODERMA AB QUAL Negative Normal Negative [facility] Comment on above: Order Comment: Tabby olivas Type: BLOOD SPECIMEN Ordering Facility: [facility] Address: [address] [place] [address] Performed By: #### 2 4323-8, 3016-3 #### [facility] CLIA [id number] [address] [place] [address] [place] Performed By: #### 2 064-4 #### [facility] CLIA [id number] [address] [place] [address] [place] SCLERODERMA IGG AB 0.2 AI Normal <1.0 [facility] Comment on above: Order Comment: Tabby olivas Type: BLOOD SPECIMEN Ordering Facility: [facility] Address: [address] [place] [address] Result Comment: Scl- 70/Scleroderma antibody test is used as an aid in diagnosis of systemic sclerosis especially the diffuse cutaneous form. A negative result cannot rule out systemic sclerosis. The final interpretation should consider clinical picture and other test results such as anti-centromere antibody. Test Methodology: Multiplex flow immunoassay. Performed By: #### 2 4323-8, 6-3 #### [facility] CLIA [id number] [address] [place] [address] Performed By: #### 2 064-4 #### [facility] CLIA [id number] [address] [place] [address] [place] Sjogrens syndrome-A extracta ble nuclear Ab Qn (S)on 01-13-2025 SSA ANTIBODY QUAL Negative Normal Negative [facility] Comment on above: Order Comment: Speci men Type: BLOOD SPECIMEN Ordering Facility: [facility] Address: [address] [place] [address] Performed By: #### 2 4323-8, 3015-3 #### [facility] CLIA [id number] [address] [place] [address] Performed By: #### 2 064-4 #### [facility] CLIA [id number] [address]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 Info: 3 - TSH Order Info: 7 - T4F Performed By: #### L 501.9520, L506.0400, L500.4100 #### [facility] [address] [place], [address] Cholesterol in VLDL [Mass/Vol] 69 mg/dL High 5-40 [facility] Comment on above: Order Comment: Order Date: 05/26/24 Order Info: 785-1 - CMP Order Info: [id number] - LIPID Order Info: 3 - TSH Order Info: 7 - T4F Performed By: #### L 501.9520, L506.0400, L500.4100 #### [facility] [address] [place], [address] Triglyceride [Mass/Vol] 344 mg/dL High [facility] Comment on above: Order Comment: Order Date: 05/26/24 Order Info: 785-07 - CMP Order Info: - LIPID Order Info: [id number] - TSH Order Info: 3024-01 - T4F Result Comment: The drugs N-Acetylcysteine and Metamizole may falsely depress this assay. Serum Triglycerides Reference Interval Normal <150 mg/dL Borderline high 150 - 199 mg/dL High 200 - 499 mg/dL Very High > or = 500 mg/dL Performed By: #### L 501.9520, L506.0400, L500.4100 #### [facility] [address] [place], [address] T4 Free Directon 05-26-2024 T4 FREE DIRECT 0.83 ng/dL Normal 0.76-1.46 [facility] Comment on above: Order Comment: Order Date: 05/26/24 Order Info: [id number] - CMP Order Info: - LIPID Order Info: [id number] - TSH Order Info: 3024-01 - T4F Performed By: #### L 501.9520, L506.0400, L500.4100 #### [facility] [address] [place], [address] Thyroid Stim Hormone (TSH)on 05-26-2024 TSH 0.912 uIU/mL Normal 0.358-3.740 [facility] Comment on above: Order Comment: Order Date: 05/26/24 Order Info: 785-07 - CMP Order Info: - LIPID Order Info: [id number] - TSH Order Info: 3024-01 - T4F Performed By: #### L 501.9520, L506.0400, L500.4100 #### [facility] [address] [place], [address] Urinalysis, Completeon 05-26 BACTERIA RARE Normal None Seen [facility] Comment on above: Order Comment: UA W/ MICRO PER INTERFACE COMMENT Urine, Random Performed By: #### L 400.0001 #### [facility] [address] [place], [address] EPI,SQUAMOUS 5-10 SEEN Normal 5-10 [facility] Comment on above: Order Comment: UA W/ MICRO PER INTERFACE COMMENT Urine, Random Performed By: #### L 400.0001 #### [facility] [address] [place], [address] WBC 0-5 SEEN Normal 0-5 [facility] Comment on above: Order Comment: UA W/ MICRO PER INTERFACE COMMENT Urine, Random Performed By: #### L 400.0001 #### [facility] [address] [place], [address] Mucus Ql (Urine sed) 0 SEEN Normal [facility] Comment on above: Order Comment: UA W/ MICRO PER INTERFACE COMMENT Urine, Random Performed By: #### L 400.0001 #### [facility] [address] [place], [address] RBC 0 SEEN Normal 0-5 [facility] Comment on above: Order Comment: UA W/ MICRO PER INTERFACE COMMENT Urine, Random Performed By: #### L 400.0001 #### [facility] [address] [place], [address] No Panel InformationOrdered By: Miguel Wiley on 11-27-2023 Miscellaneous Test See comment [facility] Comment on above: TEST RESULTS LIMITSG AD-65 Autoantibody KATHIE-65 <5.0 U/mL 0.0- 5.0 TESTING PERFORMED AT [facility]. ORIGINAL REPORT ON FILE IN LAB CONTAINS ADDITIONAL TEST SITE INFORMATION. Gram stain for investigation of transfusion reactionOrdered By: Gomez Olson on 02-23-2023 Microscopic observation Gram stain Nom (Unsp spec) [facility] No Panel InformationOrdered By: Gomez Olson on 02-23-2023 Nasopharyngeal Culture Negative [facility] Absolute lymphocyte counton 04-06-2022 Lymphocytes Auto (Unsp spec) [#/Vol] 2.37 10*3/uL 0.83-4.51 [facility] Work Phone: Basophil percentageon 2021 Basophils/100 WBC (Bld) 0.8 % 0-1 [facility] Work Phone: Bilirubin [Mass/Vol] 0.40 mg/dL 0.20-1.[address] [facility] Work Phone: Comment on above: For patients on eltr ombopag therapy, use of Dimension Soso TBIL is not recommended. Chloride [Moles/Vol] 107 mmol/L 98-[address] [facility] Work Phone: Eosinophils/100 WBC (Bld) 1.9 % 0-5 [facility] Work Phone: Glucose [Mass/Vol] 95 mg/dL 74-106 [facility] Work Phone: Neutrophils (Bld) [#/Vol] 6.8 10*3/uL 2.0-7.7 [facility] Work Phone: Neutrophils/100 WBC (Bld) 64.8 % 47-70 [facility] Work Phone: Potassium [Moles/Vol] 4.2 mmol/L 3.5-5.1 [facility] Work Phone: Protein [Mass/Vol] 7.3 g/dL 6.4-8.2 [facility] Work Phone: Sodium [Moles/Vol] 138 mmol/L 136-145 [facility] Work Phone: [phone] WBC (Bld) [#/Vol] 10.4 10*3/uL 4.4-11.0 [facility] Work Phone: Blood erythrocytes count (nu mber/volume)on 04-06-2022 RBC (Bld) [#/Vol] 4.34 10*6/uL 4.2-5.4 [facility] Work Phone: Blood hemoglobin measurement (mass/volume)on 04-06-2022 Hemoglobin (Bld) [Mass/Vol] 14.6 g/dL 12.0-15.0 [facility] Work Phone: Blood lymphocytes/100 leukoc yteson 04-06-2022 Lymphocytes/100 WBC (Bld) 22.8 % 19-41 [facility] Work Phone: [phone] Blood monocytes/100 leukocyt eson 04-06-2022 Monocytes/100 WBC (Bld) 9.0 % 0-10 [facility] Work Phone: Blood platelet mean volumeon 04-06-2022 Platelet mean volume (Bld) [Entitic vol] 9.4 fL 6.2-12.0 [facility] Work Phone: Determination of erythrocyte mean corpuscular volume (MCV)on 04-06-2022 MCV (RBC) [Entitic vol] 98.4 fL 81-99 [facility] Work Phone: Hematocrit Auto (Bld) [Volum e fraction]on 04-06-2022 Hematocrit (Bld) [Volume fraction] 42.7 % 37-47 [facility] Work Phone: Laboratory - Chemistry and C hemistry - challengeon 04-06-2022 ALP [Catalytic activity/Vol] 74 U/L 45-117 [facility] Work Phone: ALT [Catalytic activity/Vol] 19 U/L 13-56 [facility] Work Phone: [phone] CO2 [Moles/Vol] 25.0 mmol/L 21.0-32.0 [facility] Work Phone: Free T4 [Mass/Vol] 0.94 ng/dL 0.76-1.46 [facility] Work Phone: Globulin (S) [Mass/Vol] 3.8 g/dL 2.2-4.2 [facility] Work Phone: [phone] Urea nitrogen/Creatinine [Mass ratio] 20.5 mg/mg 10-20 [facility] Work Phone: [phone] Laboratory - Hematology and Cell countson 04-06-2022 Erythrocyte distribution width (RBC) [Entitic vol] 44.2 fL 35.1-43.9 [facility] Work Phone: [phone] Erythrocyte distribution width (RBC) [Ratio] 12.2 % 11.6-14.6 [facility] Work Phone: [phone] Immature granulocytes/100 WBC (Bld) 0.700 % 0.0-0.9 [facility] Work Phone: [phone] Comment on above: IG% - Immature Granu locytes (promyelocytes, myelocytes and metamyelocytes) > 1% indicates that a LEFT SHIFT is Present. MCH (RBC) [Entitic mass] 33.6 pg 27.0-32.0 [facility] Work Phone: [phone] Nucleated RBC/100 WBC (Bld) [Ratio] 0 % 0-5 [facility] Work Phone: [phone] MCHC Auto (RBC) [Mass/Vol]on 04-06-2022 MCHC (RBC) [Mass/Vol] 34.2 g/dL 32-36 [facility] Work Phone: [phone] No Panel Informationon 04-06 Estimated GFR (MDRD) Amer 97 mL/min >60 [facility] Work Phone: [phone] Comment on above: GFR Calc Estimated GFR (MDRD) Non-Af Amer 80 mL/min >60 [facility] Work Phone: [phone] Comment on above: Non- GFR Calc Thyroglobulin Antibody < 1.0 IU/mL 0.0-0.9 [facility] Work Phone: [phone] Comment on above: Thyroglobulin Antibo dy measured by [employer] Thyroglobulin Level 31.0 ng/mL 1.5-38.5 [facility] Work Phone: Comment on above: According to the [employer] of Clinical Biochemistry,the reference interval for Thyroglobulin (TG) should berelated to euthyroid patients and not for patients whounderwent thyroidectomy. TG reference intervals for thesepatients depend on the residual mass of the thyroid tissueleft after surgery. Establishing a post-operative baselineis recommended. The assay limit of quantitation is 0.1ng/mLThyroglobulin measured by [employer] [place] [employer] Thyroid Stimulating Hormone (TSH) 0.87 uIU/mL 0.358-3.74 [facility] Work Phone: Platelets bldon 04-06-2022 Platelets (Bld) [#/Vol] 244 10*3/uL 150-450 [facility] Work Phone: Serum or plasma albumin mumtaz urement (mass/volume)on 04-06-2022 Albumin [Mass/Vol] 3.5 g/dL 3.2-5.0 [facility] Work Phone: Serum or plasma albumin/glob ulin mass ratioon 04-06-2022 Albumin/Globulin [Mass ratio] 0.9 {ratio} 0.9-2.4 [facility] Work Phone: Serum or plasma calcium mumtaz urement (mass/volume)on 04-06-2022 Calcium [Mass/Vol] 8.8 mg/dL 8.5-10.1 [facility] Work Phone: Serum or plasma creatinine m easurement (mass/volume)on 04-06-2022 Creatinine [Mass/Vol] 0.83 mg/dL 0.55-1.02 [facility] Work Phone: Comment on above: The validity of the calculated GFR & GFRAA in patients over 70 years has not been determined. Clinical correlation is essential. Serum or plasma thyroperoxid ase antibody assay (units/volume)on 04-06-2022 TPO Ab Qn 10 [IU]/mL 0-34 [facility] Work Phone: Comment on above: Performed at: [address], [place] [id number] Director: Josefina López MD, Phone: [phone] at: [facility] [address] [id number] Director: Anshu Cooper PhD, Phone: [phone] Serum or plasma urea nitroge n measurement (mass/volume)on 04-06-2022 Urea nitrogen [Mass/Vol] 17 mg/dL 7-18 [facility] Work Phone: Thin prep Papanicolaou smear with manual screeningon 04-06-2022 Thin prep Papanicolaou smear with manual screening 12 U/L 15-37 [facility] Work Phone: Thin prep Papanicolaou smear with manual screening 6 5-15 [facility] Work Phone: Thyroid stimulating immunogl obulins detectionon 04-06-2022 Thyroid stimulating immunoglobulins Ql (S) <0.10 IU/L 0.00-0.55 [facility] Work Phone: [phone] Absolute lymphocyte counton 09-28-2021 Lymphocytes Auto (Unsp spec) [#/Vol] 2.55 10*3/uL 0.83-4.51 [facility] [facility] Work Phone: Basophil percentageon 2021 Basophil percentage 0 SEEN /hpf [facility] Work Phone: Basophils/100 WBC (Bld) 1.0 % 0-1 [facility] Work Phone: Bilirubin [Mass/Vol] 0.30 mg/dL 0.20-1.[address] [facility] Work Phone: Comment on above: For patients on eltr ombopag therapy, use of Dimension Soso TBIL is not recommended. Chloride [Moles/Vol] 106 mmol/L 98-[address] [facility] Work Phone: Eosinophils/100 WBC (Bld) 2.0 % 0-5 [facility] Work Phone: [phone] Glucose [Mass/Vol] 91 mg/dL 74-106 [facility] Work Phone: Neutrophils (Bld) [#/Vol] 6.8 10*3/uL 2.0-7.7 [facility] Work Phone: Neutrophils/100 WBC (Bld) 64.7 % 47-70 [facility] Work Phone: Potassium [Moles/Vol] 3.9 mmol/L 3.5-5.1 [facility] Work [facility]: Protein [Mass/Vol] 7.2 g/dL 6.4-8.2 [facility] Work Phone: Sodium [Moles/Vol] 136 mmol/L 136-145 [facility] Work Phone: WBC (Bld) [#/Vol] 10.5 10*3/uL 4.4-11.0 [facility] Work Phone: Bilirubin Test strip Ql (U)o n 09-28-2021 Bilirubin Ql (U) Negative Negative [facility] Work Phone: Blood erythrocytes count (nu mber/volume)on 09-28-2021 RBC (Bld) [#/Vol] 4.30 10*6/uL 4.2-5.4 [facility] Work Phone: Blood hemoglobin measurement (mass/volume)on 09-28-2021 Hemoglobin (Bld) [Mass/Vol] 14.1 g/dL 12.0-15.0 [facility] Work Phone: Blood lymphocytes/100 leukoc yteson 09-28-2021 Lymphocytes/100 WBC (Bld) 24.2 % 19-41 [facility] Work Phone: Blood monocytes/100 leukocyt eson 09-28-2021 Monocytes/100 WBC (Bld) 7.5 % 0-10 [facility] Work Phone: Blood platelet mean volumeon 09-28-2021 Platelet mean volume (Bld) [Entitic vol] 9.9 fL 6.2-12.0 [facility] Work Phone: [phone] Determination of erythrocyte mean corpuscular volume (MCV)on 09-28-2021 MCV (RBC) [Entitic vol] 97.9 fL 81-99 [facility] Work Phone: [phone] Hematocrit Auto (Bld) [Volum e fraction]on 09-28-2021 Hematocrit (Bld) [Volume fraction] 42.1 % 37-47 [facility] Work Phone: [phone] Ketones Test strip Ql (U)on 09-28-2021 Ketones Ql (U) 50 mg/dl Negative [facility] Work Phone: [phone] Laboratory - Chemistry and C hemistry - challengeon 09-28-2021 ALP [Catalytic activity/Vol] 85 U/L 45-117 [facility] Work Phone: [phone] ALT [Catalytic activity/Vol] 26 U/L 13-56 [facility] Work Phone: [phone] CO2 [Moles/Vol] 25.0 mmol/L 21.0-32.0 [facility] Work Phone: [phone] Free T4 [Mass/Vol] 1.01 ng/dL 0.76-1.46 [facility] Work Phone: [phone] Globulin (S) [Mass/Vol] 3.6 g/dL 2.2-4.2 [facility] Work Phone: [phone] Urea nitrogen/Creatinine [Mass ratio] 13.1 mg/mg 10-20 [facility] Work Phone: [phone] Laboratory - Hematology and Cell countson 09-28-2021 Erythrocyte distribution width (RBC) [Entitic vol] 45.3 fL 35.1-43.9 [facility] Work Phone: [phone] Erythrocyte distribution width (RBC) [Ratio] 12.5 % 11.6-14.6 [facility] Work Phone: [phone] Immature granulocytes/100 WBC (Bld) 0.600 % 0.0-0.9 [facility] Work Phone: [phone] Comment on above: IG% - Immature Granu locytes (promyelocytes, myelocytes and metamyelocytes) > 1% indicates that a LEFT SHIFT is Present. MCH (RBC) [Entitic mass] 32.8 pg 27.0-32.0 [facility] Work Phone: Nucleated RBC/100 WBC (Bld) [Ratio] 0 % 0-5 [facility] Work Phone: [phone] MCHC Auto (RBC) [Mass/Vol]on 09-28-2021 MCHC (RBC) [Mass/Vol] 33.5 g/dL 32-36 [facility] Work Phone: Mucus LM Ql (Urine sed)on Mucus Ql (Urine sed) 0 SEEN /hpf [facility] Work Phone: [phone] Nitrite Test strip Ql (U)on 09-28-2021 Nitrite Ql (U) Negative Negative [facility] Work Phone: No Panel Informationon 09-28 Estimated GFR (MDRD) Amer 96 mL/min >60 [facility] Work Phone: Comment on above: GFR Calc Estimated GFR (MDRD) Non-Af Amer 79 mL/min >60 [facility] Work Phone: Comment on above: Non- GFR Calc Thyroid Stimulating Hormone (TSH) 0.84 uIU/mL 0.358-3.74 [facility] Work Phone: Platelets bldon 09-28-2021 Platelets (Bld) [#/Vol] 277 10*3/uL 150-450 [facility] Work Phone: [phone] Protein Test strip Ql (U)on 09-28-2021 Protein Ql (U) Negative Negative [facility] Work Phone: [phone] Serum or plasma albumin mumtaz urement (mass/volume)on 09-28-2021 Albumin [Mass/Vol] 3.6 g/dL 3.2-5.0 [facility] Work Phone: [phone] Serum or plasma albumin/glob ulin mass ratioon 09-28-2021 Albumin/Globulin [Mass ratio] 1.0 {ratio} 0.9-2.4 [facility] Work Phone: Serum or plasma calcium mumtaz urement (mass/volume)on 09-28-2021 Calcium [Mass/Vol] 9.0 mg/dL 8.5-10.1 [facility] Work Phone: Serum or plasma creatinine m easurement (mass/volume)on 09-28-2021 Creatinine [Mass/Vol] 0.84 mg/dL 0.55-1.02 [facility] Work Phone: Comment on above: The validity of the calculated GFR & GFRAA in patients over 70 years has not been determined. Clinical correlation is essential. Serum or plasma urea nitroge n measurement (mass/volume)on 09-28-2021 Urea nitrogen [Mass/Vol] 11 mg/dL 7-18 [facility] Work Phone: Squamous epithelial cells de tection in urine sediment by light microscopyon 09-28-2021 Epithelial cells.squamous LM Ql (Urine sed) 0-5 SEEN /hpf [facility] Work Phone: Thin prep Papanicolaou smear with manual screeningon 09-28-2021 Thin prep Papanicolaou smear with manual screening 18 U/L 15-37 [facility] Work Phone: Thin prep Papanicolaou smear with manual screening 5 5-15 [facility] Work Phone: Urine blood detectionon 03- RBC Ql (U) 25 /ul Negative [facility] Work Phone: RBC Ql (U) 0-5 SEEN /hpf [facility] Work Phone: Urine clarityon 09-28-2021 Clarity (U) Clear Clear [facility] Work Phone: [phone] Urine color determinationon 09-28-2021 Color (U) Yellow Yellow [facility] Work Phone: Urine glucose detectionon Glucose Ql (U) Normal mg/dl Normal [facility] Work Phone: [phone] Urine leukocyte esterase det ection by dipstickon 09-28-2021 Leukocyte esterase Test strip Ql (U) Negative Negative [facility] Work Phone: Urine pHon 09-28-2021 pH (U) 6.0 [pH] [facility] Work Phone: Urine sediment bacteria coun t by microscopy (number/high power field)on 09-28-2021 Bacteria LM.HPF (Urine sed) [#/Area] RARE /hpf None Seen [facility] Work Phone: Urine specific gravity measu rementon 09-28-2021 Specific gravity (U) [Rel density] 1.015 [facility] Work Phone: Urobilinogen Auto test strip Ql (U)on 09-28-2021 Urobilinogen Ql (U) Normal mg/dl Normal [facility] Work Phone: Vital Signs Date Time Vital Sign Value Performing Clinician Faci lity 10-28-2024 08:23-0400 Body height 165.[address] Prachi Shaver MD Work Phone: [facility] 10-28-2024 08:23-0400 Body mass index (BMI) [Ratio] 31.4 kg/m2 Dr. Prachi Shaver MD Work Phone: [facility] 10-28-2024 08:23-0400 Body temperature 98 [degF] Dr. Prachi Shaver MD Work Phone: [facility] 10-28-2024 08:23-0400 Body weight 85.[address] Prachi Shaver MD Work Phone: [facility] 10-28-2024 08:23-0400 Diastolic blood pressure 76 mm[Hg] Dr. Prachi Shaver MD Work Phone: [facility] 10-28-2024 08:23-0400 Heart rate 78 /min Dr. Prachi Shaver MD Work Phone: [facility] 10-28-2024 08:23-0400 Respiratory rate 15 /min Dr. Prachi Shaver MD Work Phone: [facility] 10-28-2024 08:23-0400 SaO2% (BldA) [Mass fraction] 98 % Dr. Prachi Shaver MD Work Phone: [facility] 10-28-2024 08:23-0400 Systolic blood pressure 114 mm[Hg] Dr. Prachi Shaver MD Work Phone: [facility] 11-27-2023 08:09-0400 Body height 165.[address] Prachi Shaver Work Phone: [facility] 11-27-2023 08:09-0400 Body mass index (BMI) [Ratio] 30.9 kg/m2 Dr. Prachi Shaver Work Phone: [facility] 11-27-2023 08:09-0400 Body temperature 97.8 [degF] Dr. Prachi Shaver Work Phone: [facility] 11-27-2023 08:09-0400 Body weight 84.[address] Prachi Shaver Work Phone: [facility] 11-27-2023 08:09-0400 Diastolic blood pressure 70 mm[Hg] Dr. Prachi Shaver Work Phone: [facility] 11-27-2023 08:09-0400 Heart rate 73 /min Dr. Prachi Shaver Work Phone: [facility] 11-27-2023 08:09-0400 Respiratory rate 17 /min Dr. Prachi Shaver Work Phone: [facility] 11-27-2023 08:09-0400 SaO2% (BldA) [Mass fraction] 98 % Dr. Prachi Shaver Work Phone: [facility] 11-27-2023 08:09-0400 Systolic blood pressure 110 mm[Hg] Dr. Prachi Shaver Work Phone: [facility] 09-25-2021 07:21-0500 Body height 165.[address] Prachi Shaver Work Phone: [facility] Work Phone: 09-25-2021 07:21-0500 Body temperature 98.4 [degF] Dr. Prachi Shaver Work Phone: [facility] Work Phone: 09-25-2021 07:21-0500 Diastolic blood pressure 78 mm[Hg] Dr. Prachi Shaver Work Phone: [facility] Work Phone: 09-25-2021 07:21-0500 Heart rate 69 /min Dr. Prachi Shaver Work Phone: [facility] Work Phone: 09-25-2021 07:21-0500 Respiratory rate 18 /min Dr. Prachi Shaver Work Phone: [facility] Work Phone: 09-25-2021 07:21-0500 SaO2% (BldA) [Mass fraction] 98 % Dr. Prachi Shaver Work Phone: [facility] Work Phone: 09-25-2021 07:21-0500 Systolic blood pressure 120 mm[Hg] Dr. Prachi Shaver Work Phone: [facility] Work Phone: Encounters Encounter Date Encounter Type Care Provider Facility Start: 02-15-2025 ambulatory Prachi Shaver Facilit y:[facility] Start: 01-13-2025 End: 01-13-2025 ambulatory Caryl Koo MD Work Phone: [facility] Comment on above: Neurology medical re cords Start: 11-26-2024 End: 11-26-2024 ambulatory Prachi Shaver Facility:[facility] Start: 10-28-2024 End: 10-28-[address] Miguel Wiley MD -[facility] Work Phone: Start: 10-28-2024 End: 10-28-[address] Prachi Shaver MD Work Phone: [facility] Work Phone: Start: 10-28-2024 End: 10-28-2024 ambulatory Prachi Shaver Facility:[facility] Start: 06-10-2024 ambulatory Prachi Shaver Facilit y:[facility] Start: 05-26-2024 End: 05-26-2024 ambulatory Prachi Shaver Facility:[facility] Start: 11-27-2023 End: 11-27-[address] Prahci Shaver Work Phone: [facility] Work Phone: Start: 11-27-2023 End: 11-27-[address] Prachi Shaver Work Phone: [facility] Work Phone: Start: 11-27-2023 End: 11-27-[address] Prachi Shaver Work Phone: [facility] Work Phone: Start: 02-23-2023 End: 02-23-2023 ambulatory [facility] Work Phone: Start: 02-23-2023 End: 02-23-2023 Patient encounter procedure [facility]Laboratory, Specimen Work Phone: Start: 04-14-2022 End: 04-14-2022 ambulatory [facility] Work Phone: Start: 04-14-2022 End: 04-14-2022 Patient encounter procedure [facility], [facility] Start: 04-06-2022 End: 04-06-2022 ambulatory [facility] Work Phone: Start: 04-06-2022 End: 04-06-2022 [facility] Start: 10-18-2021 End: 10-18-[address] Prachi Shaver Work Phone: [facility]MRI - [facility] Start: 09-28-[address] Prachi Shaver Work Phone: [facility] Start: 09-25-2021 End: 09-25-[address] Prachi Shaver Work Phone: [facility] Start: 05-16-2016 End: 05-17-2016 Evaluation and management of inpatient PRACHI SALDANA [facility] Procedures Date Procedure Procedure Detail Performing Clinician Start: 02-23-2023 Investigation of transfusion reaction Start: 02-23-2023 Nasopharyngeal Culture Start: 04-14-2022 US scan of thyroid Start: 10-18-2021 MRI of brain with contrast Dr. Prachi Shaver Work Phone: Plan of Treatment Date Care Activity Detail Author Start: 01-14-2028 Diabetes Screening Diabetes Screenin g [facility] Start: 05-16-2026 Urine microalbumin profile DTaP,Tdap,Td Vaccine (2 - Td or Tdap) [facility] Start: 03-29-2025 Influenza vaccination Influenz a Vaccine (Season Ended) [facility] Start: 02-05-2025 End: 02-05-2025 Patient encounter procedure 02/05/2025 3:30 PM EDT Office Visit [facility] [address] [place] [address] Caryl Koo MD [address], [place] [id number] follow up per Dr. Koo [facility] Comment on above: follow up per Dr. Koo Start: 2024 Lipid panel Lipid Screening [facility] Start: 2024 Screening for malign ant neoplasm of colon [facility] Start: 03-29-2024 Covid-19 Vaccine ( season) Covid-19 Vaccine ( season) [facility] Start: 2019 Screening for malign ant neoplasm of breast Mammogram Screening [facility] Start: 2000 Screening for malign ant neoplasm of cervix Cervical Cancer Screening [facility] Start: 1998 Hepatitis B Vaccine (1 of 3 - 19+ 3-dose series) Hepatitis B Vaccine (1 of 3 - 19+ 3-dose series) [facility] Start: 1997 Anxiety Screening Anxiety Screening [facility] Start: 1997 Depression Screening Depression Scre ening [facility] Start: 1997 Hepatitis C screening Hepatitis C [place] [facility] Payers Date Payer Category Payer Private Health Insurance [facility] [employer] Member Subscriber Plan / Payer (Effective 2024-Present) Name: Maria Ines Law Relation to Subscriber: Self Name: Maria Ines Law Payer ID: [id number] (NAIC) Type: HMO Address: [place] [id number] 2024 Unknown [id number] 2024 Private Health Insurance [id number] 2024 Self-pay [id number] 2016 Unknown Unknown [id number] Unknown [id number] Unknown [id number] Unknown [id number] Unknown [id number] Unknown [id number] Social History Date Type Detail Facility Start: 09-25-2021 End: 03-28-2023 Tobacco smoking status NHIS Unknown if ever smoked [facility] Start: 1980 Sex Assigned At Female [facility] Start: 03-28-2023 Tobacco smoking stat us NHIS Smokes tobacco daily (finding) [facility] Start: 11-03-2024 Sex Female (finding) [facility] Start: 09-26-2020 End: 01-13-2025 History of Social function [facility] Start: 09-26-2020 End: 01-13-2025 Patient Health Questionnaire 2 item (PHQ-2) [Reported] [facility] Adult Depression Scr eening Assessment 0 [facility] Start: 1980 Sex assigned at Not on file [facility] Evaluation note 10-28-2024 Note Date & Type Note Facility 10-28-2024 Evaluation note Diagnosis Onset Date Resolution Essential tremor chronic October 8:18am [facility] Work Phone: Evaluation note Note Date & Type Note Facility Evaluation note Diagnosis Onset Date Anxiety acute Essential tremor acute History of traumatic brain injury acute Tongue deviation acute [facility] Work Phone: Evaluation note Note Date & Type Note Facility Evaluation note No assessment information availa ble [facility] Work Phone: Evaluation note Note Date & Type Note Facility Evaluation note Diagnosis Onset Date Essential tremor chronic [facility] Work Phone: Reason for referral (narrative) Note Date & Type Note Facility Reason for referral (narrative) No reason for referral information available [facility] Work Phone: Summary Purpose Family History No Family History Records Found Relationship Condition Age at Onset Recorded Date/T kamaljit grandfather Cardiac disease Unknown Coronary artery disease Unknown father Cardiac disease Unknown Hypertension Unknown High blood cholesterol Unknown Cerebrovascular accident (CVA) Unknown uncle Hypertension Unknown mother High blood cholesterol Unknown Disorder of thyroid Unknown Tremor Unknown daughter Tremor Unknown Advance Directives No Advanced Directives Records Found Advance Directive Response Recorded Date/ Time Living Will No August 23 10:49am Power of Sales Order Specialist No August 23, 2020 10:49am Advance Directive Response Recorded Date/ Time Living Will No August 23 10:49am Do you have a Healthcare Power of Sales Order Specialist? No August 23, 2020 10:49am Chief Complaint and Reason for Visit Chief Complaint 3 M F U TREMOR, TONGUE DEVIATION, HX TBI Reason for Visit Anxiety Essential tremor History of traumatic brain injury Tongue deviation Chief Complaint NODULES Chief Complaint SINUSITIS Chief Complaint 8 MO FU EORDER Reason for Visit Essential tremor Chief Complaint Admit Date 1 Y FU October 28, 2024 8:18 am EORDERS October 28, 2024 9:01 am Reason for Visit Admit Date Essential tremor October 28, 2024 8:18 am Additional Source Comments INFORMATION SOURCE (unrecogn ized section and content) DATE CREATED AUTHOR 01/21/2018 [facility] DATE CREATED AUTHOR AUTHOR'S ORGANIZ ATION 01/16/2025 [facility] DATE CREATED AUTHOR AUTHOR'S ORGANIZ ATION 01/24/2025 [facility] DATE CREATED AUTHOR AUTHOR'S ORGANIZ ATION 02/15/2025 [facility] Goals (unrecognized section and content) Goals may be documented in a n alternate sectionGoals may be documented in an alternate sectionGoals may be documented in an alternate sectionGoals may be documented in an alternate sectionGoals may be documented in an alternate sectionGoals may be documented in an alternate sectionGoals may be documented in an alternate section Care Teams (unrecognized sec tion and content) Team Status: Active Member Role Status Dates Dr. Prachi Shaver MD Family Provider Active Dr. Prachi Shaver MD Primary Care Provider Active Team Status: Inactive Member Role Status Dates Dr. Prachi Shaver MD Primary Care Provider Active Dr. Gomez Olson MD Attending Provider Active Team Status: Inactive Member Role Status Dates Dr. Prachi Shaver MD Primary Care Provider, Referr ing Provider Active Dr. Miguel Wiley MD Attending Provider Active Team Status: Inactive Member Role Status Dates Dr. Prachi Shaver MD Primary Care Provider Active Dr. Miguel Wiley MD Attending Provider, Referring Provider Active Team Status: Active Member Role Status Dates Dr. Prachi Shaver MD Primary Care Provider Active Team Status: Inactive Member Role Status Dates Dr. Prachi Shaver MD Primary Care Provider Active Start: October 28, 2024 End: October 28, 2024 Dr. Prachi Shaver MD Referring Provider Active Start: October 28, 2024 End: October 28, 2024 Dr. Miguel Wiley MD Attending Provider Active Start: October 28, 2024 End: October 28, 2024 Team Status: Inactive Member Role Status Dates Dr. Prachi Shaver MD Primary Care Provider Active Start: October 28, 2024 End: October 28, 2024 Dr. Miguel Wiley MD Attending Provider Active Start: October 28, 2024 End: October 28, 2024 Dr. Miguel Wiley MD Referring Provider Active Start: October 28, 2024 End: October 28, 2024 Source Comments (unrecognize d section and content) In the event this informatio n is protected by the Federal Confidentiality of Alcohol and Drug Abuse Patient Records regulations: The Federal rules restrict any use of the information to criminally investigate or prosecute any alcohol or drug abuse patient.[facility] FOR RECORDS PERTAINING TO PATIENTS WHO ARE OR HAVE BEEN ENROLLED IN A CHEMICAL DEPENDENCY/SUBSTANCEABUSE PROGRAM, SOME INFORMATION MAY BE OMITTED. This clinical summary was aggregated from multiple sources. Caution should be exercised in using it in the provision of clinical care. This summary normalizes information from multiple sources, and as a consequence, information in this document may materially change the coding, format and clinical context of patient data. In addition, data may be omitted in some cases. CLINICAL DECISIONS SHOULD BE BASED ON THE PRIMARY CLINICAL RECORDS. [employer] provides no warranty or guarantee of the accuracy or completeness of information in this document.
--- NOTE | 2025-02-15 06:57 | US_ITS ---
PROCEDURE: THYROID 02/15/2025 REASON FOR EXAM: NODULE TECHNIQUE: THYROID COMPARISON: Thyroid ultrasound 04/14/2022. FINDINGS: Right thyroid lobe size: 6.0 x 2.8 x 2.4 cm Left thyroid lobe size: 6.4 x 2.6 x 2.3 cm Isthmus: 0.6 cm Background parenchymal echotexture is homogeneous. Nodules: There are stable, tiny bilateral colloid cysts, which do not meet criteria for dedicated evaluation. US/Thyroid IMPRESSION: Stable tiny colloid cysts, which do not meet criteria for further follow-up aida ging by ACR TI-RADS criteria. Reading Location: [id number]
--- NOTE | 2025-02-15 07:32 | CPS ---
PT'S ORDER WAS FOR PRE AND POST BRONCHODILATOR ONLY
== END | disposition home or self-care (01) ==
LOC: PSN 06:54
PROVIDERS: PCP Family Medicine; Referring Provider Family Medicine; Visit Provider Family Medicine
DX: E04.2 Nontoxic multinodular goiter (principal)
CPT/HCPCS: 76536; 94060

== ENCOUNTER → 2025-06-02 | Outpatient (CLI) | payer OTHER, SELFPAY ==
[2025-06-02 10:24] LABS: Hematocrit 37.6 % (37-47); Hemoglobin 13.1 g/dL (12.0-15.0); Immature Granulocytes Count 0.060 X10^3/uL (0.0-0.0); Mean Corp Hgb Conc 34.8 g/dL (32-36); Mean Corpuscular Volume 94.2 fL (81-99); Mean Platelet Vol. 9.4 fl (6.2-12.0); NRBC Flagged by Analyzer 0 % (0-5); Platelet Count 256 K/mm3 (150-450); RBC Distribution Width CV 12.1 % (11.6-14.6); RBC Distribution Width SD 42.3 fl (35.1-43.9); Red Blood Count 3.99 M/mm3 (4.2-5.4); White Blood Count 8.5 K/mm3 (4.4-11.0)
[2025-06-02 11:02] LABS: AST(SGOT) 23 U/L (<=31); Alanine Aminotransfer ALT/SGPT 18 U/L (<=34); Albumin, Serum 3.8 g/dL (3.5-5.0); Alkaline Phosphatase 66 U/L (35-104); Anion Gap 12 (5-15); BUN 10 mg/dL (4-19); BUN/Creat Ratio 14.8 RATIO (10-20); Calcium,Total 8.5 mg/dL (7.6-11.0); Carbon Dioxide 22.0 mmol/L (21.0-32.0); Chloride 102 mmol/L (98-108); Globulin 2.8 g/dL (2.2-4.2); Glucose 102 mg/dL (70-99); Potassium 4.1 mmol/L (3.3-5.1)
== END | disposition home or self-care (01) ==
LOC: MFPLAB 08:25
PROVIDERS: PCP Family Medicine; Visit Provider Family Medicine
DX: R73.09 Other abnormal glucose (principal); R63.5 Abnormal weight gain
CPT/HCPCS: 36415; 80053; 83036; 84439; 84443; 85025